=== PATIENT | female | born 1945 | race African-American/Black ===

== ENCOUNTER 2017-10-12 11:43 | Observation (INO) | payer MEDICARE, OTHER ==
[~2017-10-12] VITALS: Ht 166.4 cm; Wt 66.5 kg
[~2017-10-12 11:43] MED LIST: CLARITIN-D 241 EACH PO; DILTIAZEM HCL60 MG PO; FLONASE NS; HYDROCHLOROTHIA25 MG PO; METOPROLOL SUCC50 MG PO; METOPROLOL TART50 MG PO; POTASSIUM CHLO10 ME1 PO; TESSALON PERLE100 MG PO
[2017-10-12] MEDS ORDERED: ASPIRIN 81 MG CHEW TAB PO ONE ×2 (12:45→15:45)
[2017-10-12] MEDS ORDERED: HYDRALAZINE HCL 20 MG/ML VIAL IV STA (13:06)
[2017-10-12 13:15] LABS: BASOPHILS % 0.4 % (0.0-1.0); EOSINOPHILS # (AUTO) 0.1 (0.0-0.4); EOSINOPHILS % 0.9 % (0.0-6.0); HEMATOCRIT 38.8 % (34.2-44.1); HEMOGLOBIN 13.5 g/dL (12.0-16.0); LYMPHOCYTES # (AUTO) 2.3 (1.0-3.2); MEAN CORPUSCULAR HEMOGLOBIN 30.5 pg (28-32); MEAN CORPUSCULAR HGB CONC 34.8 g/dL (31-35); MEAN CORPUSCULAR VOLUME 87.6 fL (81-99); MONOCYTES # (AUTO) 0.6 (0.2-0.8); MONOCYTES % 8.7 % (4.4-11.3); NEUTROPHILS # (AUTO) 3.8 (2.1-6.9); NEUTROPHILS % 55.9 % (38.7-80.0); PLATELET COUNT 253 x10e3/uL (140-360); RED BLOOD COUNT 4.43 x10e6/uL (3.6-5.1); RED CELL DISTRIBUTION WIDTH 12.8 % (11.7-14.4)
[2017-10-12 13:25] LABS: INR 1.16; PARTIAL THROMBOPLASTIN TIME 28.1 seconds (23.8-35.5); PROTHROMBIN TIME 13.9 seconds (11.9-14.5)
[2017-10-12 13:35] LABS: ALBUMIN 3.8 g/dL (3.5-5.0); ALBUMIN/GLOBULIN RATIO 1.1 (0.8-2.0); ANION GAP 12.6 mmol/L (8-16); CALCIUM 10.2 mg/dL (8.4-10.2); CREATININE, SERUM 1.2 mg/dL (0.57-1.11); POTASSIUM 3.6 mmol/L (3.5-5.1)
[2017-10-12 13:41] LABS: CREATINE KINASE MB 1.7 ng/mL (0-5.0)
--- NOTE | 2017-10-12 15:29 | Diagnostic Imaging Report ---
PROCEDURE: A single AP view of the chest. COMPARISON: None. INDICATIONS: SHORTNESS OF BREATH FINDINGS: Lines/tubes: None. Lungs: The lungs are well inflated and clear. There is no evidence of pneumonia or pulmonary edema. Pleura: There is no pleural effusion or pneumothorax. Heart and mediastinum: The cardiomediastinal silhouette is enlarged. Aorta is tortuous. Bones: No acute bony abnormality. IMPRESSION: 1. No acute cardiopulmonary disease. 2. Enlarged cardiomediastinal silhouette. Dictated by: Nikita Ernst M.D. on 10/12/2017 at 15:33 Electronically approved by: Nikita Ernst M.D. on 10/12/2017 at 15:33
[2017-10-12] MEDS ORDERED: HYDROCHLOROTHIA25 MG (16:46)
[2017-10-12] MEDS ORDERED: LOSARTAN POTASS25 MG (16:46)
[2017-10-12] MEDS ORDERED: POTASSIUM CHLO20 ME1 (16:46)
[2017-10-12 17:00] VITALS: BP 147/111
[2017-10-12 17:02] VITALS: BP 147/111
[2017-10-12] MEDS ORDERED: HYDRALAZINE HCL 20 MG/ML VIAL IV PRN (17:30)
[2017-10-12] MEDS: NIFEDIPINE CR 30 MG TAB PO ONE ×2 (18:04→18:30)
[2017-10-12 19:44] VITALS: BP 169/112
[2017-10-12 20:00] VITALS: BP 169/112
[2017-10-12] MEDS ORDERED: NITROGLYCERIN 0.4 MG SUBL SL PRN (22:45)
[2017-10-13] VITALS: BP 106/74
[2017-10-13 04:00] VITALS: BP 102/71
[2017-10-13 06:11] LABS: BASOPHILS % 0.5 % (0.0-1.0); EOSINOPHILS % 0.4 % (0.0-6.0); HEMATOCRIT 39.2 % (34.2-44.1); HEMOGLOBIN 13.7 g/dL (12.0-16.0); LYMPHOCYTES # (AUTO) 2.4 (1.0-3.2); MEAN CORPUSCULAR HEMOGLOBIN 30.2 pg (28-32); MEAN CORPUSCULAR HGB CONC 34.9 g/dL (31-35); MEAN CORPUSCULAR VOLUME 86.3 fL (81-99); MONOCYTES # (AUTO) 0.8 (0.2-0.8); MONOCYTES % 9.1 % (4.4-11.3); NEUTROPHILS # (AUTO) 5.2 (2.1-6.9); NEUTROPHILS % 61.9 % (38.7-80.0); PLATELET COUNT 261 x10e3/uL (140-360); RED BLOOD COUNT 4.54 x10e6/uL (3.6-5.1); RED CELL DISTRIBUTION WIDTH 12.4 % (11.7-14.4)
[2017-10-13 06:59] LABS: ALBUMIN 3.7 g/dL (3.5-5.0); ANION GAP 14.5 mmol/L (8-16); BILIRUBIN,DIRECT 0.5 mg/dL (0.0-0.5); CALCIUM 10.3 mg/dL (8.4-10.2); CREATININE, SERUM 1.08 mg/dL (0.57-1.11); MAGNESIUM 1.7 MG/DL (1.3-2.1); POTASSIUM 3.5 mmol/L (3.5-5.1)
[2017-10-13 07:07] LABS: CREATINE KINASE MB 3.8 ng/mL (0-5.0)
[2017-10-13 07:15] VITALS: BP 102/71
[2017-10-13 07:24] LABS: CHOL/HDL RATIO 3.8 (3.0-3.6)
[2017-10-13 07:25] VITALS: BP 95/61
[2017-10-13] MEDS ORDERED: HYDROCHLOROTHIAZIDE 25 MG TAB PO SCH (09:00)
[2017-10-13] MEDS ORDERED: ASPIRIN 325 MG TAB PO SCH (09:00)
[2017-10-13] MEDS ORDERED: LOSARTAN POTASSIUM 25 MG TAB PO SCH (09:00)
[2017-10-13] MEDS ORDERED: METOPROLOL TARTRATE 50 MG TAB PO SCH (09:00)
[2017-10-13] MEDS ORDERED: ASPIRIN 81 MG CHEW TAB PO SCH (09:00)
[2017-10-13] MEDS ORDERED: IBUPROFEN 600 MG TAB PO STA (10:42)
[2017-10-13] MEDS ORDERED: LACTOBACILLUS ACIDOPHILUS CAPSULE PO SCH ×2 (10:45→11:00)
[2017-10-13 11:24] VITALS: BP 96/69
--- NOTE | 2017-10-13 14:04 | Discharge Summary ---
PRIMARY CARE DOCTOR: Dr. Reji Alexis with [facility]. FINAL DIAGNOSIS: Uncontrolled hypertension. SECONDARY DIAGNOSES 1. Stage 3 chronic kidney disease due to hypertension, stable. 2. Nonobstructive coronary artery disease. CONSULTANTS: None. PROCEDURES/STUDIES PERFORMED: None. HISTORY: Per [facility]. HOSPITAL COURSE: The patient was given 1 dose of nifedipine XL 60 mg, and her blood pressure is well controlled. However, the patient stated that she does not tolerate nifedipine well in the past. Therefore, I told her to increase her Norvasc from 5 mg to 10 mg, and to follow up with her PCP within a week. The patient just had a left heart cath last year that was relatively unremarkable. She does have chronic indeterminate troponin elevation of 0.2 to 0.3 dating back to last year. The patient was seen and examined today. CONDITION ON DISCHARGE: Stable. DISCHARGE MEDICATIONS: Please see medication reconciliation form. JOSETTE JACKSON M.D. Job#: [id number] RI cc:REJI ALEXIS MD
[2017-10-15] MEDS ORDERED: GABAPENTIN300 MG PO (05:57)
[2017-10-18] MEDS ORDERED: COREG12.5 MG PO (14:13)
[2017-10-18] MEDS ORDERED: CALAN SR180 MG PO (14:14)
[2017-10-18] MEDS ORDERED: VERAPAMIL ER120 MG PO (14:14)
== END 2017-10-13 12:33 | disposition home or self-care (01) ==
LOC: ER 11:43 → ERHOLD 15:57 → IMCU 16:11
PROVIDERS: ADMIT Internal Medicine; ATTEND Internal Medicine
DX: I12.9 Hypertensive chronic kidney disease with stage 1 through stage 4 chronic kidney disease, or unspecified chronic kidney disease (principal); R94.31 Abnormal electrocardiogram [ECG] [EKG]; N18.3 Chronic kidney disease, stage 3 (moderate); I25.10 Atherosclerotic heart disease of native coronary artery without angina pectoris
CPT/HCPCS: 36415 ×2; 71045; 80048; 80053; 80061; 80076; 82550 ×2; 82553 ×2; 83735; 84484 ×2; 85025 ×2; 85610; 85730; 93005; 99284; G0378 ×2; J0360

== ENCOUNTER 2018-05-12 20:15 | Emergency (ER) | payer MEDICARE ==
[~2018-05-12] VITALS: Ht 166.4 cm; Wt 63.5 kg
[~2018-05-12 20:15] MED LIST changes: +CALAN SR180 MG PO; +COREG12.5 MG PO; +GABAPENTIN300 MG PO; +HYDROCHLOROTHIA25 MG; +LOSARTAN POTASS25 MG; +POTASSIUM CHLO20 ME1; +VERAPAMIL ER120 MG PO
--- OUTSIDE RECORDS SUMMARY | 2018-05-12 20:18 | XMS REPORT | Clinical Summary ---
Author Author ERIC ZieglerBonner General HospitalAdviceIQ [facility] Organization [facility] Address Unknown Phone Unavailable Care Team Providers Care Management Consulting Name Role Phone Cathie Alexis MD PCP Allergies Comments Active Allergy Reactions Severity Noted Date Converted from ECW; angioedema Steven Inhibitors Medications End Date Status Medication Sig Dispensed Refills Start Date Active aspirin 81 MG EC tablet Take 81 mg by 0 mouth daily. Active gabapentin (NEURONTIN) Take 100 mg 0 100 MG capsule by mouth 2 (two) times daily as needed. Active ranitidine (ZANTAC) 75 MG Take 75 mg by 0 tabletIndications: mouth 2 (two) Dyspepsia times daily. Active albuterol HFA (VENTOLIN Inhale 1 puff 0 HFA) 90 mcg/actuation by mouth via inhaler inhaler every 6 (six) hours as needed for Wheezing Pro-Air/ Albuterol inhaler . 12/02/2017 Discontinued chlorthalidone (HYGROTEN) Take 25 mg by 0 25 MG tablet mouth daily. 1/2 tablet 12/02/2017 Discontinued potassium chloride SA Take 10 mEq 0 (K-DUR,KLOR-CON) 20 MEQ by mouth tablet daily . 12/02/2017 Discontinued pantoprazole (PROTONIX) Take 40 mg by 0 40 MG tablet mouth daily. 12/05/2017 Discontinued carvedilol (COREG) 25 MG Take 25 mg by 0 tablet mouth 2 (two) times daily with breakfast and dinner. 12/05/2017 Discontinued verapamil (CALAN-SR) 240 Take 240 mg 0 MG CR tablet by mouth 2 (two) times daily. 12/05/2017 Discontinued potassium chloride SA Take 10 mEq 0 (K-DUR,KLOR-CON) 10 MEQ by mouth tablet daily. 03/05/2018 atorvastatin (LIPITOR) 40 Take 1 tablet 90 tablet 0 MG tablet (40 mg total) 8 by mouth daily for 90 days. 12/16/2017 Discontinued losartan (COZAAR) 25 MG Take 1 tablet 30 tablet 0 tablet (25 mg total) 8 by mouth daily. 12/16/2017 Discontinued carvedilol (COREG) 12.5 Take 1 tablet 60 tablet 0 MG tablet (12.5 mg 8 total) by mouth 2 (two) times daily. 01/15/2018 senna-docusate (SENOKOT Take 1 tablet 60 tablet 0 S) 8.6-50 mg per tablet by mouth 2 8 (two) times daily for 30 days. 01/15/2018 verapamil (CALAN-SR) 180 Take 1 tablet 30 tablet 0 MG ER tablet (180 mg 8 total) by mouth nightly for 30 days. 12/26/2017 traMADol (ULTRAM) 50 mg Take 1 tablet 30 tablet 0 tablet (50 mg total) 8 by mouth every 6 (six) hours as needed for up to 10 days. Max Daily Amount: 200 mg 01/15/2018 carvedilol (COREG) 25 MG Take 1 tablet 60 tablet 0 tablet (25 mg total) 8 by mouth 2 (two) times daily with breakfast and dinner for 30 days. 01/15/2018 losartan (COZAAR) 50 MG Take 1 tablet 60 tablet 0 tablet (50 mg total) 8 by mouth 2 (two) times daily for 30 days. Active Problems Problem Noted Date Hypertensive emergency 12/16/2017 Acute coronary syndromes 12/13/2017 Acute on chronic congestive heart failure, unspecified heart failure type 12/13/2017 Renal insufficiency 12/13/2017 AICD (automatic cardioverter/defibrillator) present 12/13/2017 HOCM (hypertrophic obstructive cardiomyopathy) 11/20/2017 Syncope 11/19/2017 NSTEMI (non-ST elevated myocardial infarction) 05/23/2014 Chest pain 05/22/2014 Weakness generalized 05/22/2014 Visit for screening mammogram 01/12/2012 Overview: Normal and ultrasound normal ICD9 DX Catering Manager Essential hypertension, benign 12/17/2011 Overview: Converted from ECW Essential hypertension, malignant 08/04/2011 Overview: Converted from ECW Other and unspecified hyperlipidemia 07/26/2011 Overview: Converted from ECW Acute frontal sinusitis 04/08/2011 Overview: Converted from ECW Resolved Problems Problem Noted Date Resolved Date Hypertensive urgency 12/14/2017 12/16/2017 Hypertension due to surgical care 12/13/2017 12/16/2017 Overview: Unmasked hypertension, 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 Encounters Care Team Description Date Type Specialty Sachin Marquez MD HOCM (hypertrophic obstructive cardiomyopathy) ([facility]) (Primary Dx); ACS (acute coronary syndrome) ([facility]); Acute coronary syndromes (HCC); Hypertensive emergency; Acute on chronic congestive heart failure, unspecified heart failure type ([facility]); Renal insufficiency; AICD (automatic cardioverter/defibrillator) present 12/12/2017 Hospital Cardiology - Encounter 12/16/2017 Veda Peraza RN 12/07/2017 Documentation Cardiology Arnie Rogers MD ALCOHOL ABLATION MCR - IP PROC ONLY 11/30/2017 Surgery Geoff Zapien MD AICD GENERATOR & LEADS - INSERTION W/ MAC ANESTHESIA (SING/DUAL/MULT) 11/28/2017 Surgery Bacilio White MD Lozano, Pablo, MD ACS (acute coronary syndrome) ([facility]) (Primary Dx); Unstable angina ([facility]); Syncope and collapse; Chest pain, precordial; Weakness generalized; NSTEMI (non-ST elevated myocardial infarction) ([facility]) 11/19/2017 [facility] General Internal Medicine - Encounter 12/05/2017 11/19/2017 Orders Only General Internal Medicine after 05/11/2017 Family History Medical History Relation Name Comments Heart disease Brother Stroke Brother [place] Cancer Maternal Breast Grandmother Heart disease Maternal Grandmother Hypertension Maternal Grandmother Heart disease Mother CVA Hypertension Mother Stroke Mother Cancer Sister Cervical Relation Name Status Comments Brother Maternal Grandmother Mother Sister Son Alive (2) sons Social History Date Tobacco Use Types Packs/Day Years Used Quit: 05/02/2005 Former Smoker 1 20 Smokeless Tobacco: Never Used Tobacco Cessation: Counseling Given: No Comments: does not smoke at all Alcohol Use Drinks/Week oz/Week Comments No 0.0 Sex Assigned at Date Recorded Not on file Industry Job Start Date Occupation Not on file Not on file Not on file Travel End Travel History Travel Start No recent travel history available. Last Filed Vital Signs Time Taken Vital Sign Reading 12/16/2017 11:09 AM CDT Blood Pressure 141/90 12/16/2017 11:09 AM CDT Pulse 86 12/16/2017 11:09 AM CDT Temperature 36.7 C (98 F) 12/16/2017 11:09 AM CDT Respiratory Rate 18 12/16/2017 11:09 AM CDT Oxygen Saturation 98% 12/15/2017 1:37 AM CDT Inhaled Oxygen 21% Concentration 12/16/2017 7:01 AM CDT Weight 65.3 kg (143 lb 15.4 oz) 12/13/2017 8:40 AM CDT Height 166.4 cm (5' 5.51") 12/16/2017 7:01 AM CDT Body Mass Index 23.58 Plan of Treatment Health Maintenance Due Date Last Done Comments INFLUENZA VACCINE 01/30/2018 Implants Device Identifier Shelf Expiration Date Model / Serial / Lot Implanted Type Area Manufactur er 01/29/2018 [id number] / [id number] / Env Absrb Antibact Tyrx Med - Cardiovasc Left: Chest [employer]: [id number] ular CARD Implanted: Qty: 1 on 11/28/2017 by RHY:Geoff Aponte MD E MGT 08/10/2019 [id number] / [id number] / Ld Endocardial Df4 Act 55 [id number] Defibrilla N/A: Heart [employer]: - [id number] tors CARD Implanted: Qty: 1 on 11/28/2017 by RHY:Geoff Aponte MD E MGT 02/12/2019 [id number] / [id number] / Dev Gen Evera Xt Dr Rodriguez Defibrilla N/A: Heart [employer]: [id number] - [id number] tors CARD Implanted: Qty: 1 on 11/28/2017 by RHY:Geoff Aponte MD E MGT 10/08/2019 [id number] / [id number] / Lead Pacemkr Capsur Novus 45cm Pacemaker N/A: Heart [employer]: 5076-45 - [id number] Lead CARD Implanted: Qty: 1 on 11/28/2017 by Y:Geoff Aponte MD E MGT Procedures Comments Procedure Name Priority Date/Time Associated Diagnosis VASCULAR DIAGRAM -SCAN 02/23/2018 5:40 AM CDT VASCULAR DIAGRAM -SCAN 02/23/2018 5:40 AM CDT CARDIAC CATH REPORT - 12/20/2017 SCAN 3:12 PM CDT CARDIAC CATH REPORT - 12/20/2017 SCAN 3:12 PM CDT RHYTHM STRIP - SCAN 12/20/2017 9:00 AM CDT CBC W/PLT COUNT & AUTO Routine 12/16/2017 DIFFERENTIAL 5:03 AM CDT CBC W/PLT COUNT & AUTO Routine 12/16/2017 DIFFERENTIAL 5:03 AM CDT BASIC METABOLIC PANEL (7) Routine 12/16/2017 5:03 AM CDT ECHOCARDIOGRAM REPORT - 12/15/2017 SCAN 3:30 PM CDT FERRITIN Routine 12/15/2017 12:03 PM CDT VITAMIN B12 AND FOLATE Routine 12/15/2017 12:03 PM CDT IRON, TIBC, % SAT. Routine 12/15/2017 (WITHOUT FERRITIN) 12:03 PM CDT INCUBATED 1:1 MIXING AP Routine 12/15/2017 STUDY 12:03 PM CDT CBC W/PLT COUNT & AUTO Routine 12/15/2017 DIFFERENTIAL 4:22 AM CDT APTT Routine 12/15/2017 4:22 AM CDT PROTHROMBIN TIME/INR Routine 12/15/2017 4:22 AM CDT CBC W/PLT COUNT & AUTO Routine 12/15/2017 DIFFERENTIAL 4:22 AM CDT TSH/FREE T4 IF INDICATED Routine 12/15/2017 4:22 AM CDT MAGNESIUM Routine 12/15/2017 4:22 AM CDT BASIC METABOLIC PANEL (7) Routine 12/15/2017 4:22 AM CDT 2D ECHO W/ DOPPLER Routine 12/14/2017 (CW/PW/COLOR) 3:42 PM CDT XR CHEST 1 VIEW Routine 12/14/2017 PORTABLE/BEDSIDE 5:32 AM CDT CBC W/PLT COUNT & AUTO Routine 12/14/2017 DIFFERENTIAL 5:08 AM CDT APTT Routine 12/14/2017 5:08 AM CDT PROTHROMBIN TIME/INR Routine 12/14/2017 5:08 AM CDT CBC W/PLT COUNT & AUTO Routine 12/14/2017 DIFFERENTIAL 5:08 AM CDT TSH/FREE T4 IF INDICATED Routine 12/14/2017 5:08 AM CDT MAGNESIUM Routine 12/14/2017 5:08 AM CDT BASIC METABOLIC PANEL (7) Routine 12/14/2017 5:08 AM CDT TROPONIN I STAT 12/14/2017 12:46 AM CDT TROPONIN I STAT 12/13/2017 6:25 PM CDT ED ECG INTERPRETATION Routine 12/13/2017 2:25 PM CDT CRITICAL CARE Routine 12/13/2017 2:25 PM CDT TOXICOLOGY SCREEN, SERUM Routine 12/13/2017 9:49 AM CDT TROPONIN I STAT 12/13/2017 9:49 AM CDT TROPONIN I STAT 12/13/2017 12:51 AM CDT ECG 12-LEAD STAT 12/12/2017 10:24 PM CDT XR CHEST 1 VIEW STAT 12/12/2017 PORTABLE/BEDSIDE 7:04 PM CDT CBC W/PLT COUNT & AUTO STAT 12/12/2017 DIFFERENTIAL 5:48 PM CDT CREATINE KINASE (CK), STAT 12/12/2017 TOTAL AND MB 5:48 PM CDT B-TYPE NATRIURETIC FACTOR STAT 12/12/2017 (BNP) 5:48 PM CDT BASIC METABOLIC PANEL (7) STAT 12/12/2017 5:48 PM CDT TROPONIN I STAT 12/12/2017 5:48 PM CDT LACTIC ACID, VENOUS, STAT 12/12/2017 WHOLE BLOOD 5:48 PM CDT CBC W/PLT COUNT & AUTO STAT 12/12/2017 DIFFERENTIAL 5:48 PM CDT ECG 12-LEAD Routine 12/12/2017 5:43 PM CDT Procedure Note - Interface, External Ris In - 12/12/2017 7:21 PM CDT Ventricula r Rate 90 BPM Atrial Rate 90 BPM P-R Interval 196 ms QRS Duration 120 ms Q-T Interval 408 ms QTC Calculatio n(Bazett) 499 ms P Atkins 80 degrees R Atkins -19 degrees T Atkins 153 degrees Normal sinus rhythm Left ventricula r hypertroph y with QRS widening and repolariza tion abnormalit y Abnormal ECG When compared with ECG of 8 05:44, Nonspecifi c T wave abnormalit y no longer evident in Anterior leads ECG 12-LEAD STAT 12/12/2017 5:43 PM CDT CARDIAC CATH REPORT - 12/06/2017 SCAN 2:01 PM CDT VASCULAR DIAGRAM -SCAN 12/06/2017 2:01 PM CDT ARRYTHMIA IMPLANT REPORT 12/06/2017 - SCAN 2:01 PM CDT RHYTHM STRIP - SCAN 12/06/2017 2:00 PM CDT RHYTHM STRIP - SCAN 12/06/2017 2:00 PM CDT ECG 12-LEAD Routine 12/05/2017 5:44 AM CDT ECHOCARDIOGRAM REPORT - 12/04/2017 SCAN 5:50 PM CDT ECG 12-LEAD Routine 12/04/2017 8:47 AM CDT ECG 12-LEAD Routine 12/04/2017 8:46 AM CDT CBC W/PLT COUNT & AUTO Routine 12/04/2017 DIFFERENTIAL 4:26 AM CDT BASIC METABOLIC PANEL (7) Routine 12/04/2017 4:26 AM CDT CBC W/PLT COUNT & AUTO Routine 12/04/2017 DIFFERENTIAL 4:26 AM CDT 2D ECHO W/ DOPPLER Routine 12/03/2017 (CW/PW/COLOR) 4:11 PM CDT ECG 12-LEAD Routine 12/03/2017 5:14 AM CDT Procedure Note - Interface, External Ris In - 12/03/2017 5:17 AM CDT Ventricula r Rate 103 BPM Atrial Rate 103 BPM P-R Interval 196 ms QRS Duration 114 ms Q-T Interval 384 ms QTC Calculatio n(Bazett) 503 ms P Atkins 42 degrees R Atkins -23 degrees T Atkins 168 degrees Sinus tachycardi a Incomplete left bundle branch block Left ventricula r hypertroph y with repolariza tion abnormalit y Abnormal ECG When compared with ECG of 8 05:14, No significan t change was found ECG 12-LEAD Routine 12/03/2017 5:14 AM CDT Procedure Note - Interface, External Ris In - 12/03/2017 5:17 AM CDT Ventricula r Rate 99 BPM Atrial Rate 99 BPM P-R Interval 190 ms QRS Duration 116 ms Q-T Interval 376 ms QTC Calculatio n(Bazett) 482 ms P Atkins 62 degrees R Atkins -24 degrees T Atkins 167 degrees Normal sinus rhythm Left ventricula r hypertroph y with QRS widening and repolariza tion abnormalit y Abnormal ECG When compared with ECG of 8 02:44, No significan t change was found ECG 12-LEAD Routine 12/03/2017 5:14 AM CDT ECG 12-LEAD Routine 12/02/2017 2:44 AM CDT VASCULAR DIAGRAM -SCAN 12/01/2017 12:21 PM CDT ECG 12-LEAD Routine 12/01/2017 5:04 AM CDT Procedure Note - Interface, External Ris In - 12/01/2017 5:07 AM CDT Ventricula r Rate 89 BPM Atrial Rate 89 BPM P-R Interval 202 ms QRS Duration 114 ms Q-T Interval 394 ms QTC Calculatio n(Bazett) 479 ms P Atkins 70 degrees R Atkins -37 degrees T Atkins 150 degrees Normal sinus rhythm Left axis deviation Incomplete left bundle branch block Left ventricula r hypertroph y with repolariza tion abnormalit y Abnormal ECG When compared with ECG of 8 15:53, Incomplete left bundle branch block is now Present Minimal criteria for Septal infarct are no longer Present T wave inversion more evident in Anterior leads ECG 12-LEAD Routine 12/01/2017 5:04 AM CDT CREATINE KINASE (CK), Routine 12/01/2017 TOTAL AND MB 4:59 AM CDT CBC (HEMOGRAM ONLY) Routine 12/01/2017 4:59 AM CDT BASIC METABOLIC PANEL (7) Routine 12/01/2017 4:59 AM CDT ECG 12-LEAD Routine 11/30/2017 3:53 PM CDT Procedure Note - Interface, External Ris In - 11/30/2017 4:57 PM CDT Ventricula r Rate 91 BPM Atrial Rate 91 BPM P-R Interval 208 ms QRS Duration 116 ms Q-T Interval 406 ms QTC Calculatio n(Bazett) 499 ms P Atkins 72 degrees R Atkins -37 degrees T Atkins 131 degrees Normal sinus rhythm Left axis deviation Left ventricula r hypertroph y with QRS widening and repolariza tion abnormalit y Cannot rule out Septal infarct , age undetermin ed Marked ST abnormalit y, possible anterior subendocar dial injury Abnormal ECG When compared with ECG of 8 16:41, Premature atrial complexes are no longer Present Minimal criteria for Septal infarct are now Present ST now depressed in Anterior leads ECG 12-LEAD Routine 11/30/2017 3:53 PM CDT 2D ECHO W/ DOPPLER STAT 11/30/2017 (CW/PW/COLOR) 3:03 PM CDT POCT-ACT Routine 11/30/2017 2:43 PM CDT ALCOHOL ABLATION MCR - 11/30/2017 Coronary artery disease IP PROC ONLY 12:30 PM CDT involving [place] heart without angina pectoris, unspecified vessel or lesion type Case Notes Rm-Bd: 1415 01. 12mGy CBC W/PLT COUNT & AUTO Routine 11/30/2017 DIFFERENTIAL 6:55 AM CDT MAGNESIUM Routine 11/30/2017 6:55 AM CDT BASIC METABOLIC PANEL (7) Routine 11/30/2017 6:55 AM CDT CBC W/PLT COUNT & AUTO Routine 11/30/2017 DIFFERENTIAL 6:55 AM CDT TROPONIN I Routine 11/30/2017 6:55 AM CDT ECG 12-LEAD Routine 11/29/2017 4:41 PM CDT Procedure Note - Interface, External Ris In - 11/29/2017 4:47 PM CDT Ventricula r Rate 84 BPM Atrial Rate 84 BPM P-R Interval 216 ms QRS Duration 118 ms Q-T Interval 406 ms QTC Calculatio n(Bazett) 479 ms P Atkins 77 degrees R Atkins -41 degrees T Atkins 131 degrees Sinus rhythm with 1st degree A-V block with Premature atrial complexes Left axis deviation Left ventricula r hypertroph y with QRS widening and repolariza tion abnormalit y Abnormal ECG When compared with ECG of 8 16:37, Previous ECG has undetermin ed rhythm, needs review ECG 12-LEAD Routine 11/29/2017 4:41 PM CDT ECG 12-LEAD Routine 11/29/2017 4:37 PM CDT Procedure Note - Interface, External Ris In - 11/29/2017 4:47 PM CDT Ventricula r Rate 0 BPM Atrial Rate 0 BPM QRS Duration 0 ms Q-T Interval 0 ms QTC Calculatio n(Bazett) 0 ms R Atkins 0 degrees T Atkins 0 degrees No QRS complexes found, no ECG analysis possible When compared with ECG of 8 08:42, Current undetermin ed rhythm precludes rhythm comparison , needs review 2D ECHO W/ DOPPLER Routine 11/29/2017 (CW/PW/COLOR) 10:37 AM CDT 2D ECHO W/ DOPPLER Routine 11/29/2017 (CW/PW/COLOR) 7:52 AM CDT BASIC METABOLIC PANEL (7) Routine 11/29/2017 3:30 AM CDT XR CHEST 1 VIEW STAT 11/28/2017 PORTABLE/BEDSIDE 5:50 PM CDT AICD GENERATOR & LEADS - 11/28/2017 HOCM (hypertrophic INSERTION W/ MAC 4:37 PM CDT obstructive ANESTHESIA cardiomyopathy) (HCC) (SING/DUAL/MULT) Case Notes (4) CASE 1415 APPROVED BY MAHESH TO FOLLOW CBC W/PLT COUNT & AUTO Routine 11/28/2017 DIFFERENTIAL 6:49 AM CDT APTT Routine 11/28/2017 6:49 AM CDT PROTHROMBIN TIME/INR Routine 11/28/2017 6:49 AM CDT CBC W/PLT COUNT & AUTO Routine 11/28/2017 DIFFERENTIAL 6:49 AM CDT BASIC METABOLIC PANEL (7) Routine 11/28/2017 6:49 AM CDT B-TYPE NATRIURETIC FACTOR Routine 11/25/2017 (BNP) 5:37 PM CDT MR CARDIAC WITHOUT & WITH Routine 11/25/2017 CONTRAST 2:13 PM CDT MR MRA CHEST WITH AND Routine 11/25/2017 WITHOUT CONTRAST 2:13 PM CDT TROPONIN I Routine 11/22/2017 8:51 AM CDT MAGNESIUM Routine 11/22/2017 1:52 AM CDT BASIC METABOLIC PANEL (7) Routine 11/22/2017 1:52 AM CDT TROPONIN I Routine 11/22/2017 1:52 AM CDT CBC (HEMOGRAM ONLY) STAT 11/22/2017 1:52 AM CDT TROPONIN I Routine 11/21/2017 4:18 PM CDT 2D ECHO W/ DOPPLER Routine 11/21/2017 (CW/PW/COLOR) 3:21 PM CDT TROPONIN I Routine 11/21/2017 8:43 AM CDT CBC (HEMOGRAM ONLY) STAT 11/21/2017 6:06 AM CDT APTT Routine 11/21/2017 2:28 AM CDT TROPONIN I Routine 11/21/2017 12:42 AM CDT PT/APTT Routine 11/20/2017 8:41 PM CDT TROPONIN I Routine 11/20/2017 4:36 PM CDT PT/APTT Routine 11/20/2017 2:48 PM CDT ECG 12-LEAD Routine 11/20/2017 8:42 AM CDT ECG 12-LEAD Routine 11/20/2017 8:42 AM CDT Procedure Note - Interface, External Ris In - 11/20/2017 7:17 PM CDT Ventricula r Rate 66 BPM Atrial Rate 66 BPM P-R Interval 216 ms QRS Duration 120 ms Q-T Interval 474 ms QTC Calculatio n(Bazett) 496 ms P Atkins 43 degrees R Atkins -29 degrees T Atkins 117 degrees Sinus rhythm with 1st degree A-V block Left ventricula r hypertroph y with QRS widening and repolariza tion abnormalit y Cannot rule out Septal infarct , age undetermin ed Abnormal ECG When compared with ECG of 8 16:25, No significan t change was found (MANUAL DIFFERENTIAL) Routine 11/20/2017 5:51 AM CDT CBC WITH PLATELET COUNT + Routine 11/20/2017 MANUAL DIFF 5:51 AM CDT TROPONIN I Routine 11/20/2017 5:51 AM CDT APTT Routine 11/20/2017 5:51 AM CDT TSH Routine 11/20/2017 5:51 AM CDT MAGNESIUM Routine 11/20/2017 5:51 AM CDT COMPREHENSIVE METABOLIC Routine 11/20/2017 PANEL 5:51 AM CDT CBC W/PLT+MANUAL DIFF Routine 11/20/2017 5:51 AM CDT HEMOGLOBIN A1C Routine 11/20/2017 5:51 AM CDT LIPID PANEL Routine 11/20/2017 5:51 AM CDT APTT Routine 11/19/2017 11:38 PM CDT ECG 12-LEAD Routine 11/19/2017 4:25 PM CDT APTT STAT 11/19/2017 4:02 PM CDT TROPONIN I STAT 11/19/2017 3:16 PM CDT MAGNESIUM STAT 11/19/2017 3:16 PM CDT BASIC METABOLIC PANEL (7) STAT 11/19/2017 3:16 PM CDT XR CHEST 1 VIEW STAT 11/19/2017 PORTABLE/BEDSIDE 2:35 PM CDT ECG 12-LEAD Routine 11/19/2017 2:24 PM CDT Procedure Note - Interface, External Ris In - 11/19/2017 2:35 PM CDT Ventricula r Rate 61 BPM Atrial Rate 61 BPM P-R Interval 244 ms QRS Duration 124 ms Q-T Interval 506 ms QTC Calculatio n(Bazett) 509 ms P Atkins 51 degrees R Atkins -37 degrees T Atkins 97 degrees Sinus rhythm with 1st degree A-V block Left axis deviation Left ventricula r hypertroph y with QRS widening and repolariza tion abnormalit y Abnormal ECG When compared with ECG of 5 04:39, [place] interval has increased Non-specif ic change in ST segment in Lateral leads ECG 12-LEAD STAT 11/19/2017 2:24 PM CDT CBC W/PLT COUNT & AUTO STAT 11/19/2017 DIFFERENTIAL 1:59 PM CDT PT/APTT STAT 11/19/2017 1:59 PM CDT CBC W/PLT COUNT & AUTO STAT 11/19/2017 DIFFERENTIAL 1:59 PM CDT ECG 12-LEAD STAT 11/19/2017 1:38 PM CDT after 05/11/2017 Results * VASCULAR DIAGRAM -SCAN (02/23/2018 5:40 AM CDT) Only the most recent of 4 results within the time period is included. Narrative Performed At * CARDIAC CATH REPORT - SCAN (12/20/2017 3:12 PM CDT) Narrative Performed At * CARDIAC CATH REPORT - SCAN (12/20/2017 3:12 PM CDT) Narrative Performed At * RHYTHM STRIP - SCAN (12/20/2017 9:00 AM CDT) Only the most recent of 3 results within the time period is included. Narrative Performed At * CBC with platelet count + automated diff (12/16/2017 5:03 AM CDT) Only the most recent of 8 results within the time period is included. WBC 6.9 3.5 - 10.5 K/L [facility] RBC 2.90 (L) 3.93 - 5.22 M/L [facility] Hemoglobin 8.7 (L) 11.2 - 15.7 GM/DL [facility] Hematocrit 27.5 (L) 34.1 - 44.9 % [facility] MCV 94.8 79.4 - 94.[address] [facility] MCH 30.0 25.6 - 32.[address] [facility] MCHC 31.6 (L) 32.2 - 35.5 GM/DL [facility] RDW 13.6 11.7 - 14.4 % [facility] Platelets 477 (H) 150 - 450 K/CU MM [facility] MPV 8.8 (L) 9.4 - 12.[address] [facility] nRBC 0 0 - 0 /[address] [facility] % Neutros 52 % [facility] % Lymphs 35 % [facility] % Monos 12 % [facility] % Eos 1 % [facility] % Baso 1 % [facility] # Neutros 3.57 1.56 - 6.13 K/L [facility] # Lymphs 2.39 1.18 - 3.74 K/L [facility] # Monos 0.80 (H) 0.24 - 0.36 K/L [facility] # Eos 0.09 0.04 - 0.36 K/L [facility] # Baso 0.05 0.01 - 0.08 K/L [facility] Immature 0 0 - 1 % [facility] Granulocytes-[facility] Specimen Blood Performing Organization Address City/State/Zipcode Phone Number [facility] [address] [place] [address] MEDICAL CENTER * Basic Metabolic Panel (12/16/2017 5:03 AM CDT) Only the most recent of 11 results within the time period is included. Sodium 139 136 - 145 meq/L [facility] Potassium 4.1 3.5 - 5.1 meq/L [facility] Chloride 110 (H) 98 - 107 meq/L [facility] CO2 24 22 - 29 meq/L [facility] BUN 18 7 - 21 mg/dL [facility] Creatinine 1.06 0.57 - 1.25 mg/dL [facility] Glucose 83 70 - 105 mg/dL [facility] Calcium 9.5 8.4 - 10.2 mg/dL [facility] EGFR 62Comment: ESTIMATED GFR IS mL/min/1.73 sq m [facility] NOT ACCURATE CREATININE [facility] CLEARANCE IN PREDICTING GLOMERULAR FILTRATION RATE. ESTIMATED GFR IS NOT APPLICABLE FOR DIALYSIS PATIENTS. Specimen Blood Performing Organization Address City/[facility]/Zipcode Phone Number [facility] [address] [place] [address] [phone] [place] [address] * ECHOCARDIOGRAM REPORT - SCAN (12/15/2017 3:30 PM CDT) Narrative Performed At * Incubated 1:1 Mixing Study (12/15/2017 12:03 PM CDT) Immediate PT 16.1 (H) 11.7 - 14.[address] [facility] Immediate PTT 42.3 (H) 22.5 - 36.[address] [facility] Immediate 1:1 Mix PT 14.8 (H) 11.7 - 14.[address] [facility] Immediate 1:1 Mix PTT 34.2 22.5 - 36.[address] [facility] 1:1 MIX, 1 HOUR INC PT 14.[address] [facility] 1:1 MIX, 1 HOUR INC PTT 32.[address] [facility] MIXING STUDY PATHOLOGIST Prolonged PT and PTT with [facility] INTERPRETATION complete correction suggestive [facility] of factor deficiency Pathologist: Joanna Ortiz MD (electronic [facility] signature) [facility] Specimen Blood - Arm, Right Performing Organization Address City/State/Zipcode Phone Number [address] [address] [phone] * Vitamin B12 and Folate (12/15/2017 12:03 PM CDT) Vitamin B12 [phone] pg/mL [facility] Folate 13.1 >=7.0 ng/mL [facility] Specimen Blood - Arm, Right Performing Organization Address [facility] Phone Number [address] [address] [phone] [place] [address] * Iron, TIBC, % sat. (without ferritin) (12/15/2017 12:03 PM CDT) Iron 45 40 - 160 ug/dL [facility] TIBC 303 250 - 450 ug/dL [facility] Iron % Saturation 15 (L) 20 - 55 % [facility] Specimen Blood - Arm, Right Performing Organization Address [facility] Phone Number [address] [address] [phone] [place] [address] * Ferritin (12/15/2017 12:03 PM CDT) Ferritin 142 5 - 275 ng/mL [facility] Specimen Blood - Arm, Right Performing Organization Address [facility] Phone Number [address] * TSH/T4 if indicated (12/15/2017 4:22 AM CDT) Only the most recent of 2 results within the time period is included. TSH 2.09 0.35 - 4.94 uIU/mL [facility] Specimen Blood Performing Organization Address [facility] Phone Number [address] [address] [phone] [address] * aPTT (12/15/2017 4:22 AM CDT) Only the most recent of 7 results within the time period is included. PTT 63.6 (H) 22.5 - 36.[address] [facility] Specimen Blood Performing Organization Address City/[facility] Phone Number [address] * Prothrombin time/INR (12/15/2017 4:22 AM CDT) Only the most recent of 3 results within the time period is included. Protime 16.9 (H) 11.7 - 14.[address] [facility] INR 1.[address] <=[address] [facility] Specimen Blood Narrative Performed At RECOMMENDED COUMADIN/WARFARIN INR THERAPY RANGES [facility] STANDARD DOSE: 2.0 - 3.0 Includes: PROPHYLAXIS for venous thrombosis, [facility] systemic embolization; TREATMENT for venous thrombosis and/or pulmonary embolus. HIGH RISK: Target INR is 2.5-3.5 for patients with mechanical heart valves. Performing Organization Address City/[facility] Phone Number [address] * Magnesium (12/15/2017 4:22 AM CDT) Only the most recent of 6 results within the time period is included. Magnesium 1.8 1.6 - 2.6 mg/dL [facility] Specimen Blood Performing Organization Address City/[facility] Phone Number [address] * 2D Echo W/Doppler(CW/PW/Color) (12/14/2017 3:42 PM CDT) Ejection Fraction [facility]ART[facility] Narrative Performed At Transthoracic Echocardiography Report (TTE) [facility] E[facility]ART[facility] Demographics [facility] Patient NameWIFLAQUITA CAMPOS Date of Study12/14/2017 ESE Female Visit [id number] Unknown Room [id number] Number Date of 1945RefJosefina Gaitan MD Physician Age 72 year(s)SonographerCheriise Ruiz Chain Saw Operator Alberta Wilson, RDCSInterpreting Lenka Dodson MD Physician Procedure Type of Study TTE procedure:2DECHO W DOPPLER(CW/PW/COLOR) (Routine) Indications:Cardiomyopathy, hypertrophic. Clinical History H/O HOCM ABN EKG CP CHF S/P AICD 11/28/17 S/P ALCOHOL ABLATION 11/30/17 Contrast Medium: Definity. Height: 65 inches Weight: 65.32 kg (144 lbs) BSA: 1.72 m^2 BMI: 23.96 kg/m^2 HR: 80 bpm BP: 138/98 mmHg Summary Provoked dynamic LVOT obstructive gradient due to PITER is in range of 75 mmHg. The left ventricle is chamber size (by vol index) is mildly enlarged (female - LVED 62-70ml/m2). LV septal thickness is mildly increased (1.2-1.4cm). LV posterior wall thickness is moderately increased (1.5-1.6cm) . Sigmoid septum with discrete basal septal hypertrophy is present. The following segment(s) appear akinetic: basal/mid infereoseptum and basal/mid antereoseptum. The other segments have low normal contractility. Global LV systolic function lower limits of normal . LVEF by Lew's method of disk assessment is lower limits of normal (50-55%) . The LVEF was measured using Lew's single plane method (apical 2 chamber) . LV diastolic function is indeterminate. Previous Study In comparison with the prior exam 12/03/2017 the following changes are noted: provoked dynamic LVOT gradient due to PITER has decreased . Unable to estimate PA systolic pressures. Signature Findings Technical Quality: Technically adequate exam. Left Ventricle The left ventricle is chamber size (by vol index) is mildly enlarged (female - LVED 62-70ml/m2). LV septal thickness is mildly increased (1.2-1.4cm). LV posterior wall thickness is moderately increased (1.5-1.6cm) . Sigmoid septum with discrete basal septal hypertrophy is present. The following segment(s) appear akinetic: basal/mid infereoseptum and basal/mid antereoseptum. The other segments have low normal contractility. Global LV systolic function lower limits of normal . LVEF by Lew's method of disk assessment is lower limits of normal (50-55%) . The LVEF was measured using Lew's single plane method (apical 2 chamber) . LV diastolic function is indeterminate. Left AtriumLA size is normal (16-34 ml/m2) . Right VentricleRV chamber size appears normal by limited views . Global RV systolic function is low normal . RV pacing wire is visualized . Right Atrium RA cavity size is normal . RA pacing wire is visualized . Aortic Valve Mild AoV cusp thickening. AoV cusp mobility is normal . Mild aortic regurgitation. Mitral Valve Mild MV leaflet thickening. Trace mitral regurgitation. Mitral Valve chordal Systolic Anterior Motion (PITER) is present at rest . Provoked dynamic LVOT obstructive gradient due to PITER is in range of 75 mmHg. Tricuspid ValveTV structure is normal. A trace of tricuspid regurgitation. Unable to estimate peak systolic PA pressure; inadequate TR velocity signal. Pulmonic Valve Normal PV structure and function by limited views and Doppler. AortaAortic root size (SInus of Valsalva diameter) is normal . PericardiumA small posterior pericardial effusion is present . An echo lucent space is noted consistent with prominent pericardial fat pad anteriorly. IVC/SVC/PA/PV/PleuralThe estimated RA pressure by IVC dynamics 0-5mmHg . The inferior vena cava size is normal . The inferior vena cava is adequately visualized. Chambers/Structures Left Atrium LA Volume: 47.4 mlLA Area: 15.98 cm^2 LA Vol. Index: 28 ml/m^2 Left Ventricle LVIDd: 5.33 cm LVIDs: 3.91 cm LV Septum Diastolic: 1.41 cm LV PW Diastolic: 1.54 cmLV FS: 26.6 % LVEDV Lew's:112.03 ml LVESV Lew's:53.25 mlLVEDVI: 65 ml/m^2 LVEF Lew's: 52.5 %LVESVI: 31 ml/m^2 LVOT Diameter: 2.03 cm Aorta Ao Root S of Lawanda.: 3.57 cmAscending Aorta: 3.61 cm Doppler/Quantitative Measurements Aortic Valve Peak Velocity: 2.71 m/s Mean Velocity: 1.53 m/s Peak Gradient: 29.4 mmHgMean Gradient: 12.35 mmHg AV VTI: 40.04 cm LVOT LVOT Diameter: 2.03 cm LVOT Area: 3.24 cm^2 Procedure Note Interface, External Ris In - 12/15/2017 2:53 PM CDT Transthoracic Echocardiography Report (TTE) Demographics Patient Name FLAQUITA WISE Date of Study 12/14/2017 ESE Gender Female Visit Number [id number] Race Unknown Room Number [id number] Number Date of 1945 Referring Ken Gaitan MD Physician Age 72 year(s) Traffic And Transport Planner Donato Ruiz Chain Saw Operator Alberta Wilson, [facility] Interpreting Lenka Dodson MD Physician Procedure Type of Study TTE procedure:2DECHO W DOPPLER(CW/PW/COLOR) (Routine) Indications:Cardiomyopathy, hypertrophic. Clinical History H/O HOCM ABN EKG CP CHF S/P AICD 11/28/17 S/P ALCOHOL ABLATION 11/30/17 Contrast Medium: Definity. Height: 65 inches Weight: 65.32 kg (144 lbs) BSA: 1.72 m^2 BMI: 23.96 kg/m^2 HR: 80 bpm BP: 138/98 mmHg Summary Provoked dynamic LVOT obstructive gradient due to PITER is in range of 75 mmHg. The left ventricle is chamber size (by vol index) is mildly enlarged (female - LVED 62-70ml/m2). LV septal thickness is mildly increased (1.2-1.4cm). LV posterior wall thickness is moderately increased (1.5-1.6cm) . Sigmoid septum with discrete basal septal hypertrophy is present. The following segment(s) appear akinetic: basal/mid infereoseptum and basal/mid antereoseptum. The other segments have low normal contractility. Global LV systolic function lower limits of normal . LVEF by Lew's method of disk assessment is lower limits of normal (50-55%) . The LVEF was measured using Lew's single plane method (apical 2 chamber) . LV diastolic function is indeterminate. Previous Study In comparison with the prior exam 12/03/2017 the following changes are noted: provoked dynamic LVOT gradient due to PITER has decreased . Unable to estimate PA systolic pressures. Signature Findings Technical Quality: Technically adequate exam. Left Ventricle The left ventricle is chamber size (by vol index) is mildly enlarged (female - LVED 62-70ml/m2). LV septal thickness is mildly increased (1.2-1.4cm). LV posterior wall thickness is moderately increased (1.5-1.6cm) . Sigmoid septum with discrete basal septal hypertrophy is present. The following segment(s) appear akinetic: basal/mid infereoseptum and basal/mid antereoseptum. The other segments have low normal contractility. Global LV systolic function lower limits of normal . LVEF by Lew's method of disk assessment is lower limits of normal (50-55%) . The LVEF was measured using Lew's single plane method (apical 2 chamber) . LV diastolic function is indeterminate. Left Atrium LA size is normal (16-34 ml/m2) . Right Ventricle RV chamber size appears normal by limited views . Global RV systolic function is low normal . RV pacing wire is visualized . Right Atrium RA cavity size is normal . RA pacing wire is visualized . Aortic Valve Mild AoV cusp thickening. AoV cusp mobility is normal . Mild aortic regurgitation. Mitral Valve Mild MV leaflet thickening. Trace mitral regurgitation. Mitral Valve chordal Systolic Anterior Motion (PITER) is present at rest . Provoked dynamic LVOT obstructive gradient due to PITER is in range of 75 mmHg. Tricuspid Valve TV structure is normal. A trace of tricuspid regurgitation. Unable to estimate peak systolic PA pressure; inadequate TR velocity signal. Pulmonic Valve Normal PV structure and function by limited views and Doppler. Aorta Aortic root size (SInus of Valsalva diameter) is normal . Pericardium A small posterior pericardial effusion is present . An echo lucent space is noted consistent with prominent pericardial fat pad anteriorly. IVC/SVC/PA/PV/Pleural The estimated RA pressure by IVC dynamics 0-5mmHg . The inferior vena cava size is normal . The inferior vena cava is adequately visualized. Chambers/Structures Left Atrium LA Volume: 47.4 ml LA Area: 15.98 cm^2 LA Vol. Index: 28 ml/m^2 Left Ventricle LVIDd: 5.33 cm LVIDs: 3.91 cm LV Septum Diastolic: 1.41 cm LV PW Diastolic: 1.54 cm LV FS: 26.6 % LVEDV Lew's:112.03 ml LVESV Lew's:53.25 ml LVEDVI: 65 ml/m^2 LVEF Lew's: 52.5 % LVESVI: 31 ml/m^2 LVOT Diameter: 2.03 cm Aorta Ao Root S of Lawanda.: 3.57 cm Ascending Aorta: 3.61 cm Doppler/Quantitative Measurements Aortic Valve Peak Velocity: 2.71 m/s Mean Velocity: 1.53 m/s Peak Gradient: 29.4 mmHg Mean Gradient: 12.35 mmHg AV VTI: 40.04 cm LVOT LVOT Diameter: 2.03 cm LVOT Area: 3.24 cm^2 Performing Organization Address City/State/Zipcode Phone Number [facility] * XR chest 1 view portable / bedside (12/14/2017 5:32 AM CDT) Only the most recent of 4 results within the time period is included. Narrative Performed At FINAL REPORT [facility] Chest one view INDICATION: Shortness of breath COMPARISON: 12/12/2017 IMPRESSION: A left chest ICD is again noted. The cardiac silhouette is enlarged. Aortic ectasia and mediastinal widening are stable. The left diaphragm remains mildly elevated. There is mild central pulmonary vascular prominence and mid basilar opacities likely reflecting atelectasis. No pneumothorax or significant pleural effusion is seen. Signed: Juan Vizcaino MD Report Verified Date/Time:12/14/2017 09:22:14 Reading Location: [facility] Radiology Reading Room Procedure Note Interface, External Ris In - 12/14/2017 9:24 AM CDT FINAL REPORT Chest one view INDICATION: Shortness of breath COMPARISON: 12/12/2017 IMPRESSION: A left chest ICD is again noted. The cardiac silhouette is enlarged. Aortic ectasia and mediastinal widening are stable. The left diaphragm remains mildly elevated. There is mild central pulmonary vascular prominence and mid basilar opacities likely reflecting atelectasis. No pneumothorax or significant pleural effusion is seen. Signed: Juan Vizcaino MD Report Verified Date/Time: 12/14/2017 09:22:14 Reading Location: [facility] Radiology Reading Room Performing Organization Address City/State/Zipcode Phone Number GE RIS * Troponin I (12/14/2017 12:46 AM CDT) Only the most recent of 14 results within the time period is included. Troponin I 4.34 (HH) 0.00 - 0.03 ng/mL [facility] Specimen Blood Narrative Performed At Troponin I (TnI) levels must be interpreted in the context of the presenting [facility] symptoms and the clinical findings. Elevated TnI levels indicate myocardial [facility] damage, but are not specific for ischemic heart disease. Elevated TnI levels are seen in patients with other cardiac conditions (including myocarditis and congestive heart failure), and slight TnI elevations occur in patients with other conditions, including sepsis, renal failure, acidosis, acute neurological disease, and persistent tachyarrhythmia. Performing Organization Address City/State/Zipcode Phone Number [facility] [address] [place] [address] MEDICAL CENTER * ED ECG Interpretation (12/13/2017 2:25 PM CDT) Narrative Performed At Lydia Burns DO 12/13/20172:25 PM ECG/EKG Interpretation Date/Time: 12/13/2017 2:24 PM Performed by: LYDIA BURNS Authorized by: SACHIN MARQUEZ The ECG was not interpreted by ED physician. This ECG was not compared with previous ECG(s).The ECG is interpreted as sinus rhythm. Rate is normal rate. Conduction: conduction normal. ST segments abnormal. ST elevation in lead(s) V2, V3 and V4. T waves abnormal. Other findings include: LVH. Clinical Impression: abnormal ECGST elevation-STEMI criteria met. * CRITICAL CARE (12/13/2017 2:25 PM CDT) Narrative Performed At Lydia Burns DO 12/13/20172:25 PM Critical Care Performed by: LYDIA BURNS Authorized by: SACHIN MARQUEZ Total critical care time: 120 minutes Critical care start time: 12/12/2017 6:30 PM Critical care end time: 12/12/2017 8:30 PM Critical care time was exclusive of separately billable procedures and treating other patients. Critical care was necessary to treat or prevent imminent or life-threatening deterioration of the following conditions: cardiac failure, shock, STRIP CUTTER failure or compromise and circulatory failure. Critical care was time spent personally by me on the following activities: blood draw for specimens, development of treatment plan with patient or surrogate, discussions with consultants, interpretation of cardiac output measurements, evaluation of patient's response to treatment, obtaining history from patient or surrogate, examination of patient, ordering and review of laboratory studies, ordering and performing treatments and interventions, ordering and review of radiographic studies, pulse oximetry, re-evaluation of patient's condition and review of old charts. * Toxicology screen, serum (12/13/2017 9:49 AM CDT) DRUG TEST, GENERAL see note [facility], URINE,[facility] Comment: INCORPORATED The following compounds were detected: Acetaminophen MEGx (Lidocaine Metabolite) Lidocaine Tramadol For a list of compounds and limits of detection go to: http://education.[employer].com/faq/XKN539 ACETONE ([facility]) None Detected [facility] METHANOL([facility]) None Detected [facility] Isopropanol([facility]) None Detected [facility] ETHANOL None Detected [facility] Comment: INC[facility]PORATED Volatile Limit of Detection: 5 mg/dL Specimen Blood - Line, Venous Narrative Performed At Performing Lab [facility], [address] [place] [address] Zak Pelayo MD, PhD Performing Organization Address City/State/Zipcode Phone Number [facility], [address] [place], [place] [facility]POR[facility] [address] [address] * ECG 12 lead (12/12/2017 10:24 PM CDT) Only the most recent of 14 results within the time period is included. Narrative Performed At Ventricular Rate 106 BPM GE MUSE Atrial Rate 106 BPM P-R Interval 174 ms QRS Duration 120 ms Q-T Interval 388 ms QTC Calculation(Bazett) 515 ms P Atkins 27 degrees R Atkins -30 degrees T Atkins 126 degrees Sinus tachycardia Left axis deviation Left ventricular hypertrophy with QRS widening and repolarization abnormality Prolonged QT Abnormal ECG When compared with ECG of 12-DEC-2017 17:43, T wave inversion no longer evident inlead II T wave inversion less evident in Lateral leadsV5-V6 Confirmed by MD SAHU YOCHAI ([id number]) on 12/13/2017 7:04:37 AM Procedure Note Interface, External Ris In - 12/13/2017 7:04 AM CDT Ventricular Rate 106 BPM Atrial Rate 106 BPM P-R Interval 174 ms QRS Duration 120 ms Q-T Interval 388 ms QTC Calculation(Bazett) 515 ms P Atkins 27 degrees R Atkins -30 degrees T Atkins 126 degrees Sinus tachycardia Left axis deviation Left ventricular hypertrophy with QRS widening and repolarization abnormality Prolonged QT Abnormal ECG When compared with ECG of 12-DEC-2017 17:43, T wave inversion no longer evident in lead II T wave inversion less evident in Lateral leads V5-V6 Confirmed by MD SAHU YOCHAI ([id number]) on 12/13/2017 7:04:37 AM Performing Organization Address City/State/Zipcode Phone Number GE MUSE * Lactic acid, venous, whole blood (12/12/2017 5:48 PM CDT) Lactate, Venous 1.1Comment: Specimen markedly 0.5 - 2.2 mmol/L [facility] hemolyzed [facility] Specimen Blood - Arm, Right Narrative Performed At Effective 09/03/2015: Units/Reference Range Change [facility] New: 0.5-2.2 mmol/LPrevious: 5-20 mg/dL [facility] Performing Organization Address City/[facility] Phone Number [facility] [address] [place] [address] [phone] * B-type Natriuretic Factor (BNP) (12/12/2017 5:48 PM CDT) Only the most recent of 2 results within the time period is included. BNP 1,146 (H) 0 - 100 pg/mL [facility] Specimen Blood - Arm, Right Performing Organization Address [facility] Phone Number [address] * Creatine Kinase (CK), Total and MB (not available at [facility] [place]) (12/12/2017 5:48 PM CDT) Only the most recent of 2 results within the time period is included. Total CK 91 29 - 200 U/L [facility] CK-MB 1.9 0.0 - 6.6 ng/mL [facility] MB Relative Index 2.1 % [facility] Specimen Blood - Arm, Right Narrative Performed At CK-MB Reference Range: [facility] <6.7Normal [facility] 6.7-10.0Borderline >10.0 Abnormal Performing Organization Address [facility] [place] [address] [phone] [address] * CARDIAC CATH REPORT - SCAN (12/06/2017 2:01 PM CDT) Narrative Performed At * ARRYTHMIA IMPLANT REPORT - SCAN (12/06/2017 2:01 PM CDT) Narrative Performed At * ECHOCARDIOGRAM REPORT - SCAN (12/04/2017 5:50 PM CDT) Narrative Performed At * 2D Echo W/Doppler(CW/PW/Color) (12/03/2017 4:11 PM CDT) Ejection Fraction [facility] ECHO HEART[facility] Narrative Performed At Transthoracic Echocardiography Report (TTE) [facility]ART[facility] Demographics [facility] Patient NamePETRA WISEORESDate of Study12/03/2017 ESE Gender Female Visit [id number] Race Unknown [id number] Number Date of 1945 Madalyn gu Age 72 year(s) SonographDonnie Baeza RDCS Chain Saw Operator Tuan Romero Interpreting Dean AvinaMD Procedure Type of Study TTE procedure:2DECHO W DOPPLER(CW/PW/COLOR) (Routine) Indications:Frequent PVC's. Clinical History HOCM;SEPTAL ABLATION;HTN;ACS;HLD;STROKE;CHH;AICD;COLON CANCER HGB 9.7 HCT 30.2 % Height: 65 inches Weight: 64.41 kg (142 lbs) BSA: 1.71 m^2 BMI: 23.63 kg/m^2 HR: 87 bpm BP: 135/95 mmHg Summary 1. Normal LV size. LV function is mildly reduced. LVEF is 45-49%. Severe asymmetric hypertrophy noted. 2. Diastology: Unable to comment due to pacing 3. Normal RV size and function 4. PITER noted at rest 5. Mild TR. Estimated PASP is 45-50 mm Hg 6. Small pericardial effusion noted 7. S/p myectomy: There is a 64 mm Hg at rest, which increases to 134 mm Hg with the Valsalva maneuver. Previous Study No prior full exam available for comparison. Signature Findings Left Ventricle The left ventricle is chamber size (by PSLAX dimension) is normal (female - LVIDd 3.8-5.2cm) . Sigmoid septum with discrete basal septal hypertrophy is present. LV septal thickness is severely increased (>1.6cm). LV posterior wall thickness is moderately increased (1.5-1.6cm) . The following segment(s) appear severely hypokinetic: basal-mid inferior, basal-mid inferoseptum . Global LV systolic function mildly reduced . LVEF by Lew's method of disk assessment is mildly reduced (45-49%) . The LVEF was measured using Lew's bi-plane method of disk . Degree of diastolic dysfunction (LAP assessment) is inconclusive due to significant MR . Left AtriumLA size is mildly enlarged (35-41 ml/m2) . Right VentricleThe right ventricular chamber size and systolic function are within normal limits. RV pacing wire is visualized . Right Atrium RA pacing wire is visualized . RA cavity size is normal . Aortic Valve AoV thickening primarily involves the non- coronary cups(s). A trace of aortic regurgitation. Mitral Valve Mild MV leaflet thickening. Mild to moderate mitral regurgitation. Mitral Valve Systolic Anterior Motion (PITER) is present at rest. Resting dynamic LVOT obstructive gradient due to PITER is in range of 63.5 mmHg. Provoked dynamic LVOT obstructive gradient due to PITER is in range of 93 mmHg. Tricuspid ValveMild tricuspid regurgitation. Estimated peak systolic PA pressure is 45-50 mmHg . Pulmonic Valve PV is not well visualized; function appears normal by Doppler visualized. AortaAortic root size (Sinus of Valsalva diameter) is mildly dilated. 3.8 cm Proximal ascending aorta size moderately dilated . 4.1 cm PericardiumSmall pericardial effusion noted IVC/SVC/PA/PV/PleuralThe estimated RA pressure by IVC dynamics 5-10mmHg . Chambers/Structures Left Atrium LA Volume: 60.53 ml LA Area: 20.81 cm^2 LA Vol. Index: 35 ml/m^2 Left Ventricle LVIDd: 4.16 cm LV Septum Diastolic: 1.99 cm LV PW Diastolic: 1.64 cm LVEDV Lew's:128.15 ml LVESV Lew's:70 ml LVEF Lew's: 45.4 %LVEDVI: 75 ml/m^2 LVESVI: 41 ml/m^2 LVOT Diameter: 2.12 cm Aorta Ao Root S of Lawanda.: 3.82 cmAscending Aorta: 4.05 cm Doppler/Quantitative Measurements LVOT LVOT Diameter: 2.12 cm LVOT Area: 3.53 cm^2 Tricuspid Valve TR Velocity: 3.21 m/s TR Gradient: 41.11 mmHg Procedure Note Interface, External Ris In - 12/04/2017 5:22 PM CDT Transthoracic Echocardiography Report (TTE) Demographics Patient Name FLAQUITA WISE Date of Study 12/03/2017 ESE Gender Female Visit Number [id number] Race Unknown Room Number 902 Number Date of 1945 Referring Ken Gaitan MD Physician Age 72 year(s) Traffic And Transport Planner Renetta Baeza RDCS Chain Saw Operator Tuan Romero Interpreting Physician JAKOB Avina Procedure Type of Study TTE procedure:2DECHO W DOPPLER(CW/PW/COLOR) (Routine) Indications:Frequent PVC's. Clinical History HOCM;SEPTAL ABLATION;HTN;ACS;HLD;STROKE;CHH;AICD;COLON CANCER HGB 9.7 HCT 30.2 % Height: 65 inches Weight: 64.41 kg (142 lbs) BSA: 1.71 m^2 BMI: 23.63 kg/m^2 HR: 87 bpm BP: 135/95 mmHg Summary 1. Normal LV size. LV function is mildly reduced. LVEF is 45-49%. Severe asymmetric hypertrophy noted. 2. Diastology: Unable to comment due to pacing 3. Normal RV size and function 4. PITER noted at rest 5. Mild TR. Estimated PASP is 45-50 mm Hg 6. Small pericardial effusion noted 7. S/p myectomy: There is a 64 mm Hg at rest, which increases to 134 mm Hg with the Valsalva maneuver. Previous Study No prior full exam available for comparison. Signature Findings Left Ventricle The left ventricle is chamber size (by PSLAX dimension) is normal (female - LVIDd 3.8-5.2cm) . Sigmoid septum with discrete basal septal hypertrophy is present. LV septal thickness is severely increased (>1.6cm). LV posterior wall thickness is moderately increased (1.5-1.6cm) . The following segment(s) appear severely hypokinetic: basal-mid inferior, basal-mid inferoseptum . Global LV systolic function mildly reduced . LVEF by Lew's method of disk assessment is mildly reduced (45-49%) . The LVEF was measured using Lew's bi-plane method of disk . Degree of diastolic dysfunction (LAP assessment) is inconclusive due to significant MR . Left Atrium LA size is mildly enlarged (35-41 ml/m2) . Right Ventricle The right ventricular chamber size and systolic function are within normal limits. RV pacing wire is visualized . Right Atrium RA pacing wire is visualized . RA cavity size is normal . Aortic Valve AoV thickening primarily involves the non- coronary cups(s). A trace of aortic regurgitation. Mitral Valve Mild MV leaflet thickening. Mild to moderate mitral regurgitation. Mitral Valve Systolic Anterior Motion (PITER) is present at rest. Resting dynamic LVOT obstructive gradient due to PITER is in range of 63.5 mmHg. Provoked dynamic LVOT obstructive gradient due to PITER is in range of 93 mmHg. Tricuspid Valve Mild tricuspid regurgitation. Estimated peak systolic PA pressure is 45-50 mmHg . Pulmonic Valve PV is not well visualized; function appears normal by Doppler visualized. Aorta Aortic root size (Sinus of Valsalva diameter) is mildly dilated. 3.8 cm Proximal ascending aorta size moderately dilated . 4.1 cm Pericardium Small pericardial effusion noted IVC/SVC/PA/PV/Pleural The estimated RA pressure by IVC dynamics 5-10mmHg . Chambers/Structures Left Atrium LA Volume: 60.53 ml LA Area: 20.81 cm^2 LA Vol. Index: 35 ml/m^2 Left Ventricle LVIDd: 4.16 cm LV Septum Diastolic: 1.99 cm LV PW Diastolic: 1.64 cm LVEDV Lew's:128.15 ml LVESV Lew's:70 ml LVEF Lew's: 45.4 % LVEDVI: 75 ml/m^2 LVESVI: 41 ml/m^2 LVOT Diameter: 2.12 cm Aorta Ao Root S of Lawanda.: 3.82 cm Ascending Aorta: 4.05 cm Doppler/Quantitative Measurements LVOT LVOT Diameter: 2.12 cm LVOT Area: 3.53 cm^2 Tricuspid Valve TR Velocity: 3.21 m/s TR Gradient: 41.11 mmHg Performing Organization Address [facility] Phone Number [facility]CHO HEARTLAB MKCKESSON CPACS * CBC (Hemogram only) (12/01/2017 4:59 AM CDT) Only the most recent of 3 results within the time period is included. WBC 8.9 3.5 - 10.5 K/L [facility] RBC 3.25 (L) 3.93 - 5.22 M/L [facility] Hemoglobin 9.7 (L) 11.2 - 15.7 GM/DL [facility] Hematocrit 30.2 (L) 34.1 - 44.9 % [facility] MCV 92.9 79.4 - 94.[address] [facility] MCH 29.8 25.6 - 32.[address] [facility] MCHC 32.1 (L) 32.2 - 35.5 GM/DL [facility] RDW 13.2 11.7 - 14.4 % [facility] Platelets 197 150 - 450 K/CU MM [facility] MPV 9.7 9.4 - 12.[address] [facility] nRBC 0 0 - 0 /[address] [facility] Specimen Blood - Arm, Right Performing Organization Address City/[facility] Phone Number [facility] [address], [place] [phone] [facility] * 2D Echo W/Doppler(CW/PW/Color) (11/30/2017 3:03 PM CDT) Ejection Fraction [facility]CHO HEART[facility] Narrative Performed At Transthoracic Echocardiography Report (TTE) [facility] ECHO HEARTLAB Demographics [facility] Patient NameFLAQUITA WISE Date of Study 11/30/2017 ESE Visit [id number] own Room Number C626 Number Date of 1945Referring Ken Gaitan MD Physician Age 72 year(s)Traffic And Transport Planner Jean-Pierre Pittman InterpretingYeny Mayberry MD Procedure Type of Study TTE procedure:2DECHO W DOPPLER(CW/PW/COLOR) (STAT) Indications:Guidance of alcohol septal ablation. Clinical History HGB 10.9 HCT 32.9 % CHF HTN COLON CANCER HLD STROKE AICD Height: 65 inches Weight: 64.41 kg (142 lbs) BSA: 1.71 m^2 BMI: 23.63 kg/m^2 HR: 95 bpm BP: 164/113 mmHg Summary 2 images only minimal pericardial effusion is noted Signature Findings Technical Quality: Technically adequate exam. Left Ventricle Extremely limited 2D exam-two images, (no Doppler) to address study indication; alcohol ablation study. RightThe right ventricular chamber size and systolic function Ventricleare within normal limits. PericardiumTrivial pericardial effusion is visualized. Procedure Note Interface, External Ris In - 11/30/2017 9:49 PM CDT Transthoracic Echocardiography Report (TTE) Demographics Patient Name FLAQUITA WISE Date of Study 11/30/2017 ESE Gender Female Visit Number [id number] Race Unknown Room Number C626 Number Date of 1945 Referring Ken Gaitan MD Physician Age 72 year(s) Traffic And Transport Planner Jean-Pierre Pittman Interpreting Yeny Mayberry MD Procedure Type of Study TTE procedure:2DECHO W DOPPLER(CW/PW/COLOR) (STAT) Indications:Guidance of alcohol septal ablation. Clinical History HGB 10.9 HCT 32.9 % CHF HTN COLON CANCER HLD STROKE AICD Height: 65 inches Weight: 64.41 kg (142 lbs) BSA: 1.71 m^2 BMI: 23.63 kg/m^2 HR: 95 bpm BP: 164/113 mmHg Summary 2 images only minimal pericardial effusion is noted Signature Findings Technical Quality: Technically adequate exam. Left Ventricle Extremely limited 2D exam-two images, (no Doppler) to address study indication; alcohol ablation study. Right The right ventricular chamber size and systolic function Ventricle are within normal limits. Pericardium Trivial pericardial effusion is visualized. Performing Organization Address City/State/Zipcode Phone Number [facility] * POC ACTIVATED CLOTTING TIME (11/30/2017 2:43 PM CDT) Activated Clotting Time 235Comment: TESTED AT [facility] [address] Specimen Blood Performing Organization Address City/State/Zipcode Phone Number [facility] [address] [phone] [facility] * 2D Echo W/Doppler(CW/PW/Color) (11/29/2017 7:52 AM CDT) Ejection Fraction [facility]CHO HEARTLAB [facility] Narrative Performed At Transthoracic Echocardiography Report (TTE) [facility] ECHO HEARTLAB Demographics [facility] Patient NameWIBETH DELORESDate of Study11/29/2017 ESE Gender Female Visit [id number] Race Unknown [id number] Number Date of 1945 ReferringMD Dean Rowland Age 72 year(s) [facility] Chain Saw Operator MD Dean Gunter Procedure Type of Study TTE procedure:2DECHO W DOPPLER(CW/PW/COLOR) Indications:Suspected hypertensive heart disease. Clinical History CHEST PAIN,CHF,COLON CANCER,CKI,DDD,HTN,HLD,DM,HYPERTROPHIC CMP Height: 65 inches Weight: 63.5 kg (140 lbs) BSA: 1.7 m^2 BMI: 23.3 kg/m^2 HR: 89 bpm BP: 140/113 mmHg Signature Findings Left Ventricle The left ventricle is chamber size (by PSLAX dimension) is small . Severe concentric LV hypertrophy. All of the LV segments contract normally . Estimated LVEF by qualitative assessment is normal (55-60%) . Left AtriumLA size is moderately enlarged . Right VentricleNormal right ventricle structure and function. Right Atrium RA cavity size is normal . RA pacing wire is visualized . Aortic Valve Mild AoV cusp thickening. Mild aortic regurgitation. Mitral Valve Mild MV leaflet thickening. Mild mitral annular calcification. Mild mitral regurgitation. Mitral Valve Systolic Anterior Motion (PITER) is present, unable reliably assess LVOT gradient due to contaminating with MR .calculated LVOT gradient is probably 100 mm of hg Tricuspid ValveMild tricuspid regurgitation. Pulmonic Valve Normal PV structure and function by limited views and Doppler. AortaAortic root size (SInus of Valsalva diameter) is normal . PericardiumNo evidence of pericardial effusion. IVC/SVC/PA/PV/PleuralThe estimated RA pressure by IVC dynamics 0-5mmHg . Chambers/Structures Left Atrium LA Dimension: 4.21 cmLA Area: 22.67 cm^2 LA Volume: 78.86 ml LA Vol. Index: 46 ml/m^2 Left Ventricle LVIDd: 3.65 cm LV Septum Diastolic: 1.78 cm LV PW Diastolic: 1.73 cm Aorta Ao Root S of Lawanda.: 3.84 cm Procedure Note Interface, External Ris In - 11/29/2017 4:35 PM CDT Transthoracic Echocardiography Report (TTE) Demographics Patient Name FLAQUITA WISE Date of Study 11/29/2017 ESE Gender Female Visit Number [id number] Race Unknown Room Number 1415 Number Date of 1945 Referring Mary Kate Meadows MD Physician Age 72 year(s) Traffic And Transport Planner Jean-Pierre Cabrera Chain Saw Operator Aj Velázquez Interpreting Mary Kate Meadows MD Physician Procedure Type of Study TTE procedure:2DECHO W DOPPLER(CW/PW/COLOR) Indications:Suspected hypertensive heart disease. Clinical History CHEST PAIN,CHF,COLON CANCER,CKI,DDD,HTN,HLD,DM,HYPERTROPHIC CMP Height: 65 inches Weight: 63.5 kg (140 lbs) BSA: 1.7 m^2 BMI: 23.3 kg/m^2 HR: 89 bpm BP: 140/113 mmHg Signature Findings Left Ventricle The left ventricle is chamber size (by PSLAX dimension) is small . Severe concentric LV hypertrophy. All of the LV segments contract normally . Estimated LVEF by qualitative assessment is normal (55-60%) . Left Atrium LA size is moderately enlarged . Right Ventricle Normal right ventricle structure and function. Right Atrium RA cavity size is normal . RA pacing wire is visualized . Aortic Valve Mild AoV cusp thickening. Mild aortic regurgitation. Mitral Valve Mild MV leaflet thickening. Mild mitral annular calcification. Mild mitral regurgitation. Mitral Valve Systolic Anterior Motion (PITER) is present, unable reliably assess LVOT gradient due to contaminating with MR .calculated LVOT gradient is probably 100 mm of hg Tricuspid Valve Mild tricuspid regurgitation. Pulmonic Valve Normal PV structure and function by limited views and Doppler. Aorta Aortic root size (SInus of Valsalva diameter) is normal . Pericardium No evidence of pericardial effusion. IVC/SVC/PA/PV/Pleural The estimated RA pressure by IVC dynamics 0-5mmHg . Chambers/Structures Left Atrium LA Dimension: 4.21 cm LA Area: 22.67 cm^2 LA Volume: 78.86 ml LA Vol. Index: 46 ml/m^2 Left Ventricle LVIDd: 3.65 cm LV Septum Diastolic: 1.78 cm LV PW Diastolic: 1.73 cm Aorta Ao Root S of Lawanda.: 3.84 cm Performing Organization Address City/State/Zipcode Phone Number [facility]CHO HEART[facility] * MR cardiac without & with IV contrast (11/25/2017 2:13 PM CDT) Narrative Performed At FINAL REPORT [facility] Cardiovascular MRI/MRA - Chest, and Abdomen:11/25/2017 2:14 PM. Comparison:None available. Clinical History:72 years old Female with history of hypertrophic cardiomyopathy, hypertension who presented with syncope. The echocardiogram showing severe PITER with flow acceleration across the LV outflow tract.. Indication:This study is performed to assess myocardial damage, viability, and to quantitate left ventricular and valvular function. Technique:Teresita Achieva 1.5 Cindy MRI scanner. * Turbo spin echo and gradient echo imaging for anatomic definition. * Dynamic cine imaging for cardiac chamber, wall-motion, and valvular analysis. * Flow quantification sequences for hemodynamics. * T2 weighted STIR imaging (with triple IR preparation) for edema analysis. * Delayed gadolinium-enhancement analysis (inversion recovery gradient echo sequence) after injection of gadolinium-chelate. RESULT: Potential study limitations:None. CHEST: The chest wall is unremarkable.The mediastinum appears normal.No significant adenopathy is identified.This study was not optimized to assess the lungs however, limited imaging reveals no gross abnormalities. The main pulmonary artery is dilated measuring 3.5 cm. The pericardium is unremarkable. VASCULAR: The aortic root is mildly dilated measuring 4.0 cm from sinus to sinus. The sinotubular junction is preserved. The ascending thoracic aorta is normal in course and contour with mild ectasia of the mid and distal ascending thoracic aorta measuring 4.0 cm. There is no acute aortic pathology, such as dissection, intramural hematoma, or contained rupture. The arch vessel branching pattern is bovine (i.e., common trunk of the innominate and left common carotid artery). All of the arch branch vessels appear widely patent in their proximal portions. The descending thoracic aorta and visualized proximal abdominal aorta are normal in course, caliber and contour. The celiac artery, SMA, and single right and two left renal arteries are widely patent. Electrical High Tension Tester dimensions of the thoracic aorta are as follows: 4.0 cm at the aortic root (measured [id number]) 4.0 cm in the mid-ascending aorta 4.0 cm at the distal ascending aorta 3.2 cm at the mid-transverse arch 3.1 cm at the proximal descending thoracic aorta 2.6 cm at the diaphragmatic hiatus Electrical High Tension Tester dimensions of the abdominal aorta are as follows: 2.6 cm at the supra-mesenteric segment 2.2 cm at the mesenteric segment 1.8 cm at the renal segment 1.7 cm at the infrarenal segment 1.7 cm at the aortic bifurcation CARDIAC CHAMBERS: The cardiac chambers have normal atrioventricular and ventriculoarterial concordance, as well as normal systemic and pulmonary venous return. Normal interatrial septumThe interventricular septum appears intact.The cardiac chamber sizes are notable for mild left atrial enlargement. Left Ventricle: The left ventricle is normal in size and has mildly reduced systolic function.There is severe asymmetric left ventricular hypertrophy involving the base to mid anterior and inferior septum: basal wanda septum (2.3 cm), and basal inferoseptum (2.4 cm).The remaining left ventricular myocardium has moderate concentric hypertrophy. There are no regional wall motion abnormalities. Quantitative left ventricular functional values are as follows: CCC=147 cc (normal 88-168 cc); EDVi=94 cc/m2 (normal 57-92 cc/m2). ESV=79 cc (normal 23-60 cc); ESVi=46 cc/m2 (normal 15-34 cc/m2). Stroke volume=80 cc (normal 58-114 cc); SVi=47 cc/m2 (normal 38-63 cc/m2). LVEF=50 % (normal 55-75%). Cardiac Output=5.5 l/min.;Cardiac Index=3.2 l/min/m2. LV trij=175 gm (normal 72-144 cc); FRYa=407 gm/m2 (normal 48-77 gm/m2). Delayed-enhancement imaging reveals uniformly "nulled" myocardium, signifying that there has been no prior ischemic myocardial damage. There is also no definite evidence of interstitial fibrosis to suggest an infiltrative process. No mural or apical left ventricular thrombus is identified. Right Ventricle: The right ventricle is normal in size and shape, and has normal systolic function on qualitative assessment, where imaged. VALVES: The mitral valve is mildly thickened. There is moderate mitral regurgitation with a eccentric jet of insufficiency.There is abnormal thickening of the papillary muscles.There is no abnormal chordal attachments visualized.There is severe systolic anterior motion of the mitral valve with fan mitral-septal contact, and significant flow acceleration within the left ventricular outflow tract. Integrating LV volumetric and aortic flow quantification data reveals: *Quantitative mitral regurgitant volume: 38 cc/beat *Quantitative mitral regurgitant fraction: 48 % The aortic valve is trileaflet.There is trivial aortic regurgitation. Flow quantification through the ascending aorta: *Forward volume: 42 cc/beat *Reverse volume: 2 cc/beat *Net forward volume: 40 cc/beat *Aortic regurgitant fraction: 4 % The tricuspid valve is structurally normal.There is no imaged tricuspid regurgitation. Flow quantification sequences through the SVC reveal normal flow patterns consistent with normal right atrial pressures. Unable to perform the flow quantification through pulmonary veinsto assess left atrial pressures. ABDOMEN: Limited imaging through the upper abdomen reveals no abnormalities of the imaged organs. IMPRESSION: 1. Severe asymmetric septal hypertrophy involving basal to mid anterior and inferior septum, measuring basal wanda septum (2.3 cm), and basal inferoseptum (2.4 cm). The remaining left ventricular myocardium has moderate concentric hypertrophy. No evidence of myocardial fibrosis on delayed enhancement imaging. There is severe systolic anterior motion of the mitral valve with fan mitral-septal contact, and significant flow acceleration within the left ventricular outflow tract. The above constellation of features may suggest Hypertrophic Obstructive cardiomyopathy. However, given the concentric hypertrophy the morphological changes of the LV myocardium could also be secondary to uncontrolled hypertension over multiple years, especially given negative myocardial fibrosis. 2. The mitral valve is mildly thickened. There is moderate mitral regurgitation with a eccentric jet of insufficiency. Regurgitant volume of 38 mL and regurgitant fraction of 48% (Volumetric analysis). 3. The left ventricle is normal in size and has mildly reduced systolic function. LVEF=50%. 4. No other significant valvular abnormalities noted. 5. Mild ectasia of the aortic root (sinus to sinus) and ascending thoracic aorta both measuring 4.0 cm. There is no acute aortic pathology, such as dissection, intramural hematoma, or contained rupture. Signed: Jonathon Garcia MD Report Verified Date/Time:11/26/2017 17:11:41 Reading Location: [place] [address] Cardiology MRI Procedure Note Interface, External Ris In - 11/26/2017 5:13 PM CDT FINAL REPORT Cardiovascular MRI/MRA - Chest, and Abdomen: 11/25/2017 2:14 PM. Comparison: None available. Clinical History: 72 years old Female with history of hypertrophic cardiomyopathy, hypertension who presented with syncope. The echocardiogram showing severe PITER with flow acceleration across the LV outflow tract.. Indication: This study is performed to assess myocardial damage, viability, and to quantitate left ventricular and valvular function. Technique: Teresita Achieva 1.5 Cindy MRI scanner. * Turbo spin echo and gradient echo imaging for anatomic definition. * Dynamic cine imaging for cardiac chamber, wall-motion, and valvular analysis. * Flow quantification sequences for hemodynamics. * T2 weighted STIR imaging (with triple IR preparation) for edema analysis. * Delayed gadolinium-enhancement analysis (inversion recovery gradient echo sequence) after injection of gadolinium-chelate. RESULT: Potential study limitations: None. CHEST: The chest wall is unremarkable. The mediastinum appears normal. No significant adenopathy is identified. This study was not optimized to assess the lungs however, limited imaging reveals no gross abnormalities. The main pulmonary artery is dilated measuring 3.5 cm. The pericardium is unremarkable. VASCULAR: The aortic root is mildly dilated measuring 4.0 cm from sinus to sinus. The sinotubular junction is preserved. The ascending thoracic aorta is normal in course and contour with mild ectasia of the mid and distal ascending thoracic aorta measuring 4.0 cm. There is no acute aortic pathology, such as dissection, intramural hematoma, or contained rupture. The arch vessel branching pattern is bovine (i.e., common trunk of the innominate and left common carotid artery). All of the arch branch vessels appear widely patent in their proximal portions. The descending thoracic aorta and visualized proximal abdominal aorta are normal in course, caliber and contour. The celiac artery, SMA, and single right and two left renal arteries are widely patent. Electrical High Tension Tester dimensions of the thoracic aorta are as follows: 4.0 cm at the aortic root (measured [id number]) 4.0 cm in the mid-ascending aorta 4.0 cm at the distal ascending aorta 3.2 cm at the mid-transverse arch 3.1 cm at the proximal descending thoracic aorta 2.6 cm at the diaphragmatic hiatus Electrical High Tension Tester dimensions of the abdominal aorta are as follows: 2.6 cm at the supra-mesenteric segment 2.2 cm at the mesenteric segment 1.8 cm at the renal segment 1.7 cm at the infrarenal segment 1.7 cm at the aortic bifurcation CARDIAC CHAMBERS: The cardiac chambers have normal atrioventricular and ventriculoarterial concordance, as well as normal systemic and pulmonary venous return. Normal interatrial septum The interventricular septum appears intact. The cardiac chamber sizes are notable for mild left atrial enlargement. Left Ventricle: The left ventricle is normal in size and has mildly reduced systolic function. There is severe asymmetric left ventricular hypertrophy involving the base to mid anterior and inferior septum: basal wanda septum (2.3 cm), and basal inferoseptum (2.4 cm). The remaining left ventricular myocardium has moderate concentric hypertrophy. There are no regional wall motion abnormalities. Quantitative left ventricular functional values are as follows: GJG=987 cc (normal 88-168 cc); EDVi=94 cc/m2 (normal 57-92 cc/m2). ESV=79 cc (normal 23-60 cc); ESVi=46 cc/m2 (normal 15-34 cc/m2). Stroke volume=80 cc (normal 58-114 cc); SVi=47 cc/m2 (normal 38-63 cc/m2). LVEF=50 % (normal 55-75%). Cardiac Output=5.5 l/min.; Cardiac Index=3.2 l/min/m2. LV bduu=106 gm (normal 72-144 cc); DOXx=807 gm/m2 (normal 48-77 gm/m2). Delayed-enhancement imaging reveals uniformly "nulled" myocardium, signifying that there has been no prior ischemic myocardial damage. There is also no definite evidence of interstitial fibrosis to suggest an infiltrative process. No mural or apical left ventricular thrombus is identified. Right Ventricle: The right ventricle is normal in size and shape, and has normal systolic function on qualitative assessment, where imaged. VALVES: The mitral valve is mildly thickened. There is moderate mitral regurgitation with a eccentric jet of insufficiency. There is abnormal thickening of the papillary muscles. There is no abnormal chordal attachments visualized. There is severe systolic anterior motion of the mitral valve with fan mitral-septal contact, and significant flow acceleration within the left ventricular outflow tract. Integrating LV volumetric and aortic flow quantification data reveals: *Quantitative mitral regurgitant volume: 38 cc/beat *Quantitative mitral regurgitant fraction: 48 % The aortic valve is trileaflet. There is trivial aortic regurgitation. Flow quantification through the ascending aorta: *Forward volume: 42 cc/beat *Reverse volume: 2 cc/beat *Net forward volume: 40 cc/beat *Aortic regurgitant fraction: 4 % The tricuspid valve is structurally normal. There is no imaged tricuspid regurgitation. Flow quantification sequences through the SVC reveal normal flow patterns consistent with normal right atrial pressures. Unable to perform the flow quantification through pulmonary veins to assess left atrial pressures. ABDOMEN: Limited imaging through the upper abdomen reveals no abnormalities of the imaged organs. IMPRESSION: 1. Severe asymmetric septal hypertrophy involving basal to mid anterior and inferior septum, measuring basal wanda septum (2.3 cm), and basal inferoseptum (2.4 cm). The remaining left ventricular myocardium has moderate concentric hypertrophy. No evidence of myocardial fibrosis on delayed enhancement imaging. There is severe systolic anterior motion of the mitral valve with fan mitral-septal contact, and significant flow acceleration within the left ventricular outflow tract. The above constellation of features may suggest Hypertrophic Obstructive cardiomyopathy. However, given the concentric hypertrophy the morphological changes of the LV myocardium could also be secondary to uncontrolled hypertension over multiple years, especially given negative myocardial fibrosis. 2. The mitral valve is mildly thickened. There is moderate mitral regurgitation with a eccentric jet of insufficiency. Regurgitant volume of 38 mL and regurgitant fraction of 48% (Volumetric analysis). 3. The left ventricle is normal in size and has mildly reduced systolic function. LVEF=50%. 4. No other significant valvular abnormalities noted. 5. Mild ectasia of the aortic root (sinus to sinus) and ascending thoracic aorta both measuring 4.0 cm. There is no acute aortic pathology, such as dissection, intramural hematoma, or contained rupture. Signed: Jonathon Garcia MD Report Verified Date/Time: 11/26/2017 17:11:41 Reading Location: [place] [address] Cardiology MRI Performing Organization Address City/State/Zipcode Phone Number [facility] * MRA chest without & with IV contrast (11/25/2017 2:13 PM CDT) Narrative Performed At FINAL REPORT [facility] Cardiovascular MRI/MRA - Chest, and Abdomen:11/25/2017 2:14 PM. Comparison:None available. Clinical History:72 years old Female with history of hypertrophic cardiomyopathy, hypertension who presented with syncope. The echocardiogram showing severe PITER with flow acceleration across the LV outflow tract.. Indication:This study is performed to assess myocardial damage, viability, and to quantitate left ventricular and valvular function. Technique:Teresita Achieva 1.5 Cindy MRI scanner. * Turbo spin echo and gradient echo imaging for anatomic definition. * Dynamic cine imaging for cardiac chamber, wall-motion, and valvular analysis. * Flow quantification sequences for hemodynamics. * T2 weighted STIR imaging (with triple IR preparation) for edema analysis. * Delayed gadolinium-enhancement analysis (inversion recovery gradient echo sequence) after injection of gadolinium-chelate. RESULT: Potential study limitations:None. CHEST: The chest wall is unremarkable.The mediastinum appears normal.No significant adenopathy is identified.This study was not optimized to assess the lungs however, limited imaging reveals no gross abnormalities. The main pulmonary artery is dilated measuring 3.5 cm. The pericardium is unremarkable. VASCULAR: The aortic root is mildly dilated measuring 4.0 cm from sinus to sinus. The sinotubular junction is preserved. The ascending thoracic aorta is normal in course and contour with mild ectasia of the mid and distal ascending thoracic aorta measuring 4.0 cm. There is no acute aortic pathology, such as dissection, intramural hematoma, or contained rupture. The arch vessel branching pattern is bovine (i.e., common trunk of the innominate and left common carotid artery). All of the arch branch vessels appear widely patent in their proximal portions. The descending thoracic aorta and visualized proximal abdominal aorta are normal in course, caliber and contour. The celiac artery, SMA, and single right and two left renal arteries are widely patent. Electrical High Tension Tester dimensions of the thoracic aorta are as follows: 4.0 cm at the aortic root (measured [id number]) 4.0 cm in the mid-ascending aorta 4.0 cm at the distal ascending aorta 3.2 cm at the mid-transverse arch 3.1 cm at the proximal descending thoracic aorta 2.6 cm at the diaphragmatic hiatus Electrical High Tension Tester dimensions of the abdominal aorta are as follows: 2.6 cm at the supra-mesenteric segment 2.2 cm at the mesenteric segment 1.8 cm at the renal segment 1.7 cm at the infrarenal segment 1.7 cm at the aortic bifurcation CARDIAC CHAMBERS: The cardiac chambers have normal atrioventricular and ventriculoarterial concordance, as well as normal systemic and pulmonary venous return. Normal interatrial septumThe interventricular septum appears intact.The cardiac chamber sizes are notable for mild left atrial enlargement. Left Ventricle: The left ventricle is normal in size and has mildly reduced systolic function.There is severe asymmetric left ventricular hypertrophy involving the base to mid anterior and inferior septum: basal wanda septum (2.3 cm), and basal inferoseptum (2.4 cm).The remaining left ventricular myocardium has moderate concentric hypertrophy. There are no regional wall motion abnormalities. Quantitative left ventricular functional values are as follows: VHN=265 cc (normal 88-168 cc); EDVi=94 cc/m2 (normal 57-92 cc/m2). ESV=79 cc (normal 23-60 cc); ESVi=46 cc/m2 (normal 15-34 cc/m2). Stroke volume=80 cc (normal 58-114 cc); SVi=47 cc/m2 (normal 38-63 cc/m2). LVEF=50 % (normal 55-75%). Cardiac Output=5.5 l/min.;Cardiac Index=3.2 l/min/m2. LV dpcf=881 gm (normal 72-144 cc); TYCg=635 gm/m2 (normal 48-77 gm/m2). Delayed-enhancement imaging reveals uniformly "nulled" myocardium, signifying that there has been no prior ischemic myocardial damage. There is also no definite evidence of interstitial fibrosis to suggest an infiltrative process. No mural or apical left ventricular thrombus is identified. Right Ventricle: The right ventricle is normal in size and shape, and has normal systolic function on qualitative assessment, where imaged. VALVES: The mitral valve is mildly thickened. There is moderate mitral regurgitation with a eccentric jet of insufficiency.There is abnormal thickening of the papillary muscles.There is no abnormal chordal attachments visualized.There is severe systolic anterior motion of the mitral valve with fan mitral-septal contact, and significant flow acceleration within the left ventricular outflow tract. Integrating LV volumetric and aortic flow quantification data reveals: *Quantitative mitral regurgitant volume: 38 cc/beat *Quantitative mitral regurgitant fraction: 48 % The aortic valve is trileaflet.There is trivial aortic regurgitation. Flow quantification through the ascending aorta: *Forward volume: 42 cc/beat *Reverse volume: 2 cc/beat *Net forward volume: 40 cc/beat *Aortic regurgitant fraction: 4 % The tricuspid valve is structurally normal.There is no imaged tricuspid regurgitation. Flow quantification sequences through the SVC reveal normal flow patterns consistent with normal right atrial pressures. Unable to perform the flow quantification through pulmonary veinsto assess left atrial pressures. ABDOMEN: Limited imaging through the upper abdomen reveals no abnormalities of the imaged organs. IMPRESSION: 1. Severe asymmetric septal hypertrophy involving basal to mid anterior and inferior septum, measuring basal wanda septum (2.3 cm), and basal inferoseptum (2.4 cm). The remaining left ventricular myocardium has moderate concentric hypertrophy. No evidence of myocardial fibrosis on delayed enhancement imaging. There is severe systolic anterior motion of the mitral valve with fan mitral-septal contact, and significant flow acceleration within the left ventricular outflow tract. The above constellation of features may suggest Hypertrophic Obstructive cardiomyopathy. However, given the concentric hypertrophy the morphological changes of the LV myocardium could also be secondary to uncontrolled hypertension over multiple years, especially given negative myocardial fibrosis. 2. The mitral valve is mildly thickened. There is moderate mitral regurgitation with a eccentric jet of insufficiency. Regurgitant volume of 38 mL and regurgitant fraction of 48% (Volumetric analysis). 3. The left ventricle is normal in size and has mildly reduced systolic function. LVEF=50%. 4. No other significant valvular abnormalities noted. 5. Mild ectasia of the aortic root (sinus to sinus) and ascending thoracic aorta both measuring 4.0 cm. There is no acute aortic pathology, such as dissection, intramural hematoma, or contained rupture. Signed: Jonathon Garcia MD Report Verified Date/Time:11/26/2017 17:11:41 Reading Location: [place] [address] Cardiology MRI Procedure Note Interface, External Ris In - 11/26/2017 5:13 PM CDT FINAL REPORT Cardiovascular MRI/MRA - Chest, and Abdomen: 11/25/2017 2:14 PM. Comparison: None available. Clinical History: 72 years old Female with history of hypertrophic cardiomyopathy, hypertension who presented with syncope. The echocardiogram showing severe PITER with flow acceleration across the LV outflow tract.. Indication: This study is performed to assess myocardial damage, viability, and to quantitate left ventricular and valvular function. Technique: Teresita Achieva 1.5 Cindy MRI scanner. * Turbo spin echo and gradient echo imaging for anatomic definition. * Dynamic cine imaging for cardiac chamber, wall-motion, and valvular analysis. * Flow quantification sequences for hemodynamics. * T2 weighted STIR imaging (with triple IR preparation) for edema analysis. * Delayed gadolinium-enhancement analysis (inversion recovery gradient echo sequence) after injection of gadolinium-chelate. RESULT: Potential study limitations: None. CHEST: The chest wall is unremarkable. The mediastinum appears normal. No significant adenopathy is identified. This study was not optimized to assess the lungs however, limited imaging reveals no gross abnormalities. The main pulmonary artery is dilated measuring 3.5 cm. The pericardium is unremarkable. VASCULAR: The aortic root is mildly dilated measuring 4.0 cm from sinus to sinus. The sinotubular junction is preserved. The ascending thoracic aorta is normal in course and contour with mild ectasia of the mid and distal ascending thoracic aorta measuring 4.0 cm. There is no acute aortic pathology, such as dissection, intramural hematoma, or contained rupture. The arch vessel branching pattern is bovine (i.e., common trunk of the innominate and left common carotid artery). All of the arch branch vessels appear widely patent in their proximal portions. The descending thoracic aorta and visualized proximal abdominal aorta are normal in course, caliber and contour. The celiac artery, SMA, and single right and two left renal arteries are widely patent. Electrical High Tension Tester dimensions of the thoracic aorta are as follows: 4.0 cm at the aortic root (measured [id number]) 4.0 cm in the mid-ascending aorta 4.0 cm at the distal ascending aorta 3.2 cm at the mid-transverse arch 3.1 cm at the proximal descending thoracic aorta 2.6 cm at the diaphragmatic hiatus Electrical High Tension Tester dimensions of the abdominal aorta are as follows: 2.6 cm at the supra-mesenteric segment 2.2 cm at the mesenteric segment 1.8 cm at the renal segment 1.7 cm at the infrarenal segment 1.7 cm at the aortic bifurcation CARDIAC CHAMBERS: The cardiac chambers have normal atrioventricular and ventriculoarterial concordance, as well as normal systemic and pulmonary venous return. Normal interatrial septum The interventricular septum appears intact. The cardiac chamber sizes are notable for mild left atrial enlargement. Left Ventricle: The left ventricle is normal in size and has mildly reduced systolic function. There is severe asymmetric left ventricular hypertrophy involving the base to mid anterior and inferior septum: basal wanda septum (2.3 cm), and basal inferoseptum (2.4 cm). The remaining left ventricular myocardium has moderate concentric hypertrophy. There are no regional wall motion abnormalities. Quantitative left ventricular functional values are as follows: JKT=614 cc (normal 88-168 cc); EDVi=94 cc/m2 (normal 57-92 cc/m2). ESV=79 cc (normal 23-60 cc); ESVi=46 cc/m2 (normal 15-34 cc/m2). Stroke volume=80 cc (normal 58-114 cc); SVi=47 cc/m2 (normal 38-63 cc/m2). LVEF=50 % (normal 55-75%). Cardiac Output=5.5 l/min.; Cardiac Index=3.2 l/min/m2. LV mkwo=988 gm (normal 72-144 cc); FOAi=173 gm/m2 (normal 48-77 gm/m2). Delayed-enhancement imaging reveals uniformly "nulled" myocardium, signifying that there has been no prior ischemic myocardial damage. There is also no definite evidence of interstitial fibrosis to suggest an infiltrative process. No mural or apical left ventricular thrombus is identified. Right Ventricle: The right ventricle is normal in size and shape, and has normal systolic function on qualitative assessment, where imaged. VALVES: The mitral valve is mildly thickened. There is moderate mitral regurgitation with a eccentric jet of insufficiency. There is abnormal thickening of the papillary muscles. There is no abnormal chordal attachments visualized. There is severe systolic anterior motion of the mitral valve with fan mitral-septal contact, and significant flow acceleration within the left ventricular outflow tract. Integrating LV volumetric and aortic flow quantification data reveals: *Quantitative mitral regurgitant volume: 38 cc/beat *Quantitative mitral regurgitant fraction: 48 % The aortic valve is trileaflet. There is trivial aortic regurgitation. Flow quantification through the ascending aorta: *Forward volume: 42 cc/beat *Reverse volume: 2 cc/beat *Net forward volume: 40 cc/beat *Aortic regurgitant fraction: 4 % The tricuspid valve is structurally normal. There is no imaged tricuspid regurgitation. Flow quantification sequences through the SVC reveal normal flow patterns consistent with normal right atrial pressures. Unable to perform the flow quantification through pulmonary veins to assess left atrial pressures. ABDOMEN: Limited imaging through the upper abdomen reveals no abnormalities of the imaged organs. IMPRESSION: 1. Severe asymmetric septal hypertrophy involving basal to mid anterior and inferior septum, measuring basal wanda septum (2.3 cm), and basal inferoseptum (2.4 cm). The remaining left ventricular myocardium has moderate concentric hypertrophy. No evidence of myocardial fibrosis on delayed enhancement imaging. There is severe systolic anterior motion of the mitral valve with fan mitral-septal contact, and significant flow acceleration within the left ventricular outflow tract. The above constellation of features may suggest Hypertrophic Obstructive cardiomyopathy. However, given the concentric hypertrophy the morphological changes of the LV myocardium could also be secondary to uncontrolled hypertension over multiple years, especially given negative myocardial fibrosis. 2. The mitral valve is mildly thickened. There is moderate mitral regurgitation with a eccentric jet of insufficiency. Regurgitant volume of 38 mL and regurgitant fraction of 48% (Volumetric analysis). 3. The left ventricle is normal in size and has mildly reduced systolic function. LVEF=50%. 4. No other significant valvular abnormalities noted. 5. Mild ectasia of the aortic root (sinus to sinus) and ascending thoracic aorta both measuring 4.0 cm. There is no acute aortic pathology, such as dissection, intramural hematoma, or contained rupture. Signed: Jonathon Garcia MD Report Verified Date/Time: 11/26/2017 17:11:41 Reading Location: [facility] [address] Cardiology MRI Performing Organization Address City/State/Zipcode Phone Number [facility] * 2D Echo W/Doppler(CW/PW/Color) (11/21/2017 3:21 PM CDT) Ejection Fraction [facility] ECHO HEARTLAB [facility] Narrative Performed At Transthoracic Echocardiography Report (TTE) [facility] ECHO HEARTLAB Demographics [facility] Patient NameFLAQUITA WISE Date of Study11/21/2017 ESE Female Visit [id number] Unknown Room [id number] Number Date of 1945ReferrAustin Dumont Physician Age 72 year(s)SonographerCheriise Sara Chain Saw Operator Aj Velázquez Interpreting Jose La Procedure Type of Study TTE procedure:2DECHO W DOPPLER(CW/PW/COLOR) (Routine) Indications:Initial evaluation of valvular or structural heart disease. Clinical History ABN EKG CP CHF COLON CANCER HTN HLD STROKE HX HOCM SEVERE PITER Contrast Medium: Definity. Height: 65 inches Weight: 63.5 kg (140 lbs) BSA: 1.7 m^2 BMI: 23.3 kg/m^2 HR: 63 bpm BP: 137/94 mmHg Summary The left ventricle is chamber size (by vol index) is small. Severe concentric LV hypertrophy. Inferior and inferoseptum appear hypokinetic.Other LV segments contract normally . LVEF by Lew's method of disk assessment is normal (55-60%) . Systolic Anterior Motion (PITER) is present . Resting dynamic LVOT obstructive gradient due to PITER is in range of 110 mmHg. Ahml-jb-tgwnaknq mitral regurgitation. Estimated peak systolic PA pressure is 40-45 mmHg . Previous Study In comparison with the prior exam 05/24/2014 the following changes are noted: mildly depressed LVEF. . Signature Findings Left Ventricle The left ventricle is chamber size (by vol index) is small. Severe concentric LV hypertrophy. Inferior and inferoseptum appear hypokinetic.Other LV segments contract normally . LVEF by Lew's method of disk assessment is normal (55-60%) . Left AtriumLA size is mildly enlarged . Right VentricleNormal right ventricle structure and function. Right Atrium RA cavity size is normal . Aortic Valve Mild AoV cusp thickening. Mild aortic regurgitation. Mitral Valve Mild MV leaflet thickening. Mitral Valve Systolic Anterior Motion (PITER) is present . Resting dynamic LVOT obstructive gradient due to PITER is in range of 110 mmHg. Vnus-kh-ngubernq mitral regurgitation. Tricuspid ValveMild tricuspid regurgitation. Estimated peak systolic PA pressure is 40-45 mmHg . Pulmonic Valve Normal PV structure and function by limited views and Doppler. AortaAortic root size (SInus of Valsalva diameter) is normal . PericardiumA small pericardial effusion is present . IVC/SVC/PA/PV/PleuralThe estimated RA pressure by IVC dynamics 0-5mmHg . Chambers/Structures Left Atrium LA Dimension: 3.1 cm LA Volume: 64.57 ml LA Vol. Index: 38 ml/m^2 Left Ventricle LVIDd: 4.27 cm LV Septum Diastolic: 2.15 cm LV PW Diastolic: 1.86 cm LVEDV Lew's:57.08 ml LVESV Lew's:24.58 ml LVEF Lew's: 56.9 %LVEDVI: 34 ml/m^2 LVESVI: 14 ml/m^2 Aorta Ao Root S of Lawanda.: 3.25 cm Procedure Note Interface, External Ris In - 11/21/2017 5:39 PM CDT Transthoracic Echocardiography Report (TTE) Demographics Patient Name FLAQUITA WISE Date of Study 11/21/2017 ESE Gender Female Visit Number [id number] Race Unknown Room Number 1415 Number Date of 1945 Referring Jimmy Dumont Physician Age 72 year(s) Traffic And Transport Planner Donato Ruiz Chain Saw Operator Aj Velázquez Interpreting Physician JAKOB La Procedure Type of Study TTE procedure:2DECHO W DOPPLER(CW/PW/COLOR) (Routine) Indications:Initial evaluation of valvular or structural heart disease. Clinical History ABN EKG CP CHF COLON CANCER HTN HLD STROKE HX HOCM SEVERE PITER Contrast Medium: Definity. Height: 65 inches Weight: 63.5 kg (140 lbs) BSA: 1.7 m^2 BMI: 23.3 kg/m^2 HR: 63 bpm BP: 137/94 mmHg Summary The left ventricle is chamber size (by vol index) is small. Severe concentric LV hypertrophy. Inferior and inferoseptum appear hypokinetic.Other LV segments contract normally . LVEF by Lew's method of disk assessment is normal (55-60%) . Systolic Anterior Motion (PITER) is present . Resting dynamic LVOT obstructive gradient due to PITER is in range of 110 mmHg. Tutu-qe-dzlzdehb mitral regurgitation. Estimated peak systolic PA pressure is 40-45 mmHg . Previous Study In comparison with the prior exam 05/24/2014 the following changes are noted: mildly depressed LVEF. . Signature Findings Left Ventricle The left ventricle is chamber size (by vol index) is small. Severe concentric LV hypertrophy. Inferior and inferoseptum appear hypokinetic.Other LV segments contract normally . LVEF by Lew's method of disk assessment is normal (55-60%) . Left Atrium LA size is mildly enlarged . Right Ventricle Normal right ventricle structure and function. Right Atrium RA cavity size is normal . Aortic Valve Mild AoV cusp thickening. Mild aortic regurgitation. Mitral Valve Mild MV leaflet thickening. Mitral Valve Systolic Anterior Motion (PITER) is present . Resting dynamic LVOT obstructive gradient due to PITER is in range of 110 mmHg. Whqt-te-ccixrxmn mitral regurgitation. Tricuspid Valve Mild tricuspid regurgitation. Estimated peak systolic PA pressure is 40-45 mmHg . Pulmonic Valve Normal PV structure and function by limited views and Doppler. Aorta Aortic root size (SInus of Valsalva diameter) is normal . Pericardium A small pericardial effusion is present . IVC/SVC/PA/PV/Pleural The estimated RA pressure by IVC dynamics 0-5mmHg . Chambers/Structures Left Atrium LA Dimension: 3.1 cm LA Volume: 64.57 ml LA Vol. Index: 38 ml/m^2 Left Ventricle LVIDd: 4.27 cm LV Septum Diastolic: 2.15 cm LV PW Diastolic: 1.86 cm LVEDV Lew's:57.08 ml LVESV Lew's:24.58 ml LVEF Lew's: 56.9 % LVEDVI: 34 ml/m^2 LVESVI: 14 ml/m^2 Aorta Ao Root S of Lawanda.: 3.25 cm Performing Organization Address City/State/Zipcode Phone Number [facility]CHO [facility] * PT/aPTT (11/20/2017 8:41 PM CDT) Only the most recent of 3 results within the time period is included. Protime 15.0 (H) 11.7 - 14.[address] [facility] INR 1.2 <=[address]9 [facility] PTT 76.1 (H) 22.5 - 36.[address] [facility] Specimen Blood Narrative Performed At RECOMMENDED COUMADIN/WARFARIN INR THERAPY [facility] STANDARD DOSE: 2.0 - 3.0 Includes: PROPHYLAXIS for venous thrombosis, [facility] systemic embolization; TREATMENT for venous thrombosis and/or pulmonary embolus. HIGH RISK: Target INR is 2.5-3.5 for patients with mechanical heart valves. Performing Organization Address City/[facility]/Zipcode Phone Number [facility] [address] [place] [address] [facility] * Manual Differential (11/20/2017 5:51 AM CDT) % Neutros (manual) 60 % [facility] % Lymphs (manual) 32 % [facility] % Monos (manual) 6 % [facility] % Eos (manual) 2 % [facility] # Neutros (manual) 4.08 1.80 - 8.00 K/L [facility] # Lymphs (manual) 2.18 1.48 - 4.50 K/L [facility] # Monos (manual) 0.41 0.00 - 1.30 K/L [facility] # Eos (manual) 0.14 0.00 - 0.50 K/L [facility] Total Counted 100 [facility] WBC Morphology Normal [facility] Platelet Morphology [facility] RBC Morphology Normal [facility] Specimen Blood Performing Organization Address City/[facility]/Zipcode Phone Number [facility] [address] [place] [address] [facility] * CBC with platelet count + manual diff (11/20/2017 5:51 AM CDT) WBC 6.8 3.5 - 10.5 K/L [facility] RBC 3.85 (L) 3.93 - 5.22 M/L [facility] Hemoglobin 11.4 11.2 - 15.7 GM/DL [facility] Hematocrit 34.9 34.1 - 44.9 % [facility] MCV 90.6 79.4 - 94.[address] [facility] MCH 29.6 25.6 - 32.[address] [facility] MCHC 32.7 32.2 - 35.5 GM/DL [facility] RDW 12.7 11.7 - 14.4 % [facility] Platelets 233 150 - 450 K/CU MM [facility] MPV 8.8 (L) 9.4 - 12.[address] [facility] nRBC 0 0 - 0 /[address] [facility] Specimen Blood Performing Organization Address City/[facility]/Zipcode Phone Number [address] * TSH (11/20/2017 5:51 AM CDT) TSH 0.72 0.35 - 4.94 uIU/mL [facility] Specimen Blood Performing Organization Address City/[facility]/Zipcode Phone Number [address] * Hemoglobin A1c (11/20/2017 5:51 AM CDT) Hemoglobin A1C 5.4 4.3 - 6.1 % [facility] Specimen Blood Performing Organization Address City/[facility]/Zipcode Phone Number [address] * Lipid panel (11/20/2017 5:51 AM CDT) Triglycerides 58 mg/dL [facility] Cholesterol 150 mg/dL [facility] HDL 42 mg/dL [facility] LDL Calculated 96 mg/dL [facility] Specimen Blood Narrative Performed At Triglyceride Reference Range: [facility] Low Risk <150 [facility] [id number] High Risk 200-499 Very High Risk>=500 Cholesterol Reference Range: Low Risk <200 [id number] High Risk>240 HDL Cholesterol Reference Range: Low Risk >=60 High Risk <40 LDL Cholesterol Reference Range: Optimal<100 Near [id number] Very High >=190 Performing Organization Address City/State/Zipcode Phone Number [facility] [address] [place] [address] [facility] * Comprehensive metabolic panel (11/20/2017 5:51 AM CDT) Protein, Total 6.4 6.0 - 8.3 gm/dL [facility] Albumin 3.4 (L) 3.5 - 5.0 g/dL [facility] Alkaline Phosphatase 59 40 - 150 U/L [facility] Total Bilirubin 1.5 (H) 0.2 - 1.2 mg/dL [facility] Sodium 140 136 - 145 meq/L [facility] Potassium 3.4 (L) 3.5 - 5.1 meq/L [facility] Chloride 105 98 - 107 meq/L [facility] CO2 26 22 - 29 meq/L [facility] BUN 19 7 - 21 mg/dL [facility] Creatinine 1.00 0.57 - 1.25 mg/dL [facility] Glucose 89 70 - 105 mg/dL [facility] Calcium 9.5 8.4 - 10.2 mg/dL [facility] AST 18 5 - 34 U/L [facility] ALT 11 6 - 55 U/L [facility] EGFR 66Comment: ESTIMATED GFR IS mL/min/1.73 sq m [facility] NOT ACCURATE CREATININE [facility] CLEARANCE IN PREDICTING GLOMERULAR FILTRATION RATE. ESTIMATED GFR IS NOT APPLICABLE FOR DIALYSIS PATIENTS. Specimen Blood Performing Organization Address City/State/Zipcode Phone Number [facility] [address], [place] [id number] MED[facility] after 05/11/2017 Insurance Payer Benefit Subscriber ID Type Phone Address Plan / Group [facility] xxxxxxxxx MEDICARE MGD CARE ARE COMPLETE [employer] xxxxxxxxxxx MEDICARE ADV Advance Directives For more information, please contact: [facility] [address] [place] [address] Date Inactivated Comments Code Status Date Activated 12/16/2017 2:51 PM Full Code 12/13/2017 8:12 AM This code status was determined by: Patient 12/05/2017 7:46 PM Full Code 11/20/2017 1:32 AM This code status was determined by: Patient 05/29/2014 2:12 PM Full Code 05/23/2014 9:33 AM This code status was determined by: Patient
== END 2018-05-12 21:40 | disposition left against medical advice (07) ==
LOC: ER 20:15
DX: I16.0 Hypertensive urgency (principal)
CPT/HCPCS: 99281